=== PATIENT | male | born 1985 | race Caucasian/White ===

== ENCOUNTER 2021-05-07 16:27 | Emergency (ER) | payer OTHER, MEDICAID, SELFPAY ==
--- NOTE | 2021-05-07 17:15 | PC.NURSE ---
1714 no answer when called
== END 2021-05-07 17:15 | disposition left against medical advice (07) ==
DX: Z53.21 Procedure and treatment not carried out due to patient leaving prior to being seen by health care provider (principal)
CPT/HCPCS: 99199

== ENCOUNTER 2021-05-19 10:43 | Outpatient (CLI) | payer OTHER, MEDICAID, SELFPAY ==
--- NOTE | ~2021-05-19 | XR_ITS ---
XR chest 2V 05/19/2021 11:38 Indication: Dyspnea. Covid. Procedure: 2 view chest Comparison: 08/21/2015 Findings: Patchy bilateral airspace disease, compatible with pneumonia. No pleural effusion. Heart si ze normal. No pneumothorax. No acute osseous abnormality. Impression: 1: Patchy bilateral infiltrates, compatible with pneumonia. Reviewed, dictated and finalized at location A. Impression: 1: Patchy bilateral infiltrates, compatible with pneumonia.
== END 2021-05-19 10:44 | disposition home or self-care (01) ==
PROVIDERS: PCP Family Medicine; Visit Provider Nurse Practitioner Family
DX: R06.09 Other forms of dyspnea (principal); B94.8 Sequelae of other specified infectious and parasitic diseases
CPT/HCPCS: 71046

== ENCOUNTER 2021-06-04 14:45 | Outpatient (CLI) | payer OTHER, BC, SELFPAY ==
--- NOTE | ~2021-06-04 | XR_ITS ---
XR chest 2V DATE: 06/04/2021 15:03 INDICATION: Pneumonia TECHNIQUE: PA and lateral views COMPARISON: 05/19/2021 2 view chest FINDINGS: Normal heart size. No hilar or mediastinal enlargement. Interval clearing of mild patchy bilateral pulmonary infiltrates since 05/19/2021. No pleural effusion or pulmonary vascular congestion or pneumothorax. IMPRESSION: No active cardiopulmonary disease Reviewed, dictated and finalized at location A.
== END 2021-06-04 14:46 | disposition home or self-care (01) ==
LOC: ANHIMG 14:49
PROVIDERS: PCP Family Medicine; Visit Provider Nurse Practitioner Family
DX: J18.9 Pneumonia, unspecified organism (principal)
CPT/HCPCS: 71046

== ENCOUNTER 2021-06-26 16:36 | Outpatient (CLI) | payer OTHER, BC, SELFPAY ==
--- NOTE | ~2021-06-26 | XR_ITS ---
EXAMINATION: XR chest 2V 06/26/2021 17:00 INDICATION: Pneumonia PROCEDURE: 2 view chest COMPARISON: Comparison to multiple prior studies sequentially, with oldest reviewed study dated 09/23. FINDINGS: The lungs are clear. The cardiomediastinal silhouette is within normal limits. There are no pleural effusions. There is no pneumothorax suspected. IMPRESSION: 1: NO ACUTE CARDIOPULMONARY DISEASE. Reviewed, dictated and finalized at location A.
== END 2021-06-26 16:37 | disposition home or self-care (01) ==
LOC: ANHIMG 16:47
PROVIDERS: PCP Family Medicine; Visit Provider Nurse Practitioner Family
DX: J18.9 Pneumonia, unspecified organism (principal)
CPT/HCPCS: 71046

== ENCOUNTER 2021-12-11 17:49 | Outpatient (CLI) | payer OTHER, BC, SELFPAY ==
--- NOTE | ~2021-12-11 | XR_ITS ---
XR hand LT min 3V DATE: 12/11/2021 18:39 INDICATION: Injury. Pain mainly at the third through fifth metacarpal and carpal metacarpal areas TECHNIQUE: 3 views COMPARISON: None FINDINGS: No fracture or dislocation, periosteal reaction or bone destruction. No erosive change or c hondrocalcinosis. IMPRESSION: No significant abnormality Reviewed, dictated and finalized at location A. IMPRESSION: No significant abnormality
--- NOTE | ~2021-12-11 | XR_ITS ---
XR knee RT 3V DATE: 12/11/2021 18:39 INDICATION: Anterior knee pain; injury on 11/28/2021 TECHNIQUE: 3 views COMPARISON: None FINDINGS: No fracture or dislocation or joint effusion. No radiopaque intra-articular loose body or c hondrocalcinosis. Joint spaces are well preserved. No evidence of joint effusion. IMPRESSION: Negative Reviewed, dictated and finalized at location A. IMPRESSION: Negative
--- NOTE | ~2021-12-11 | XR_ITS ---
XR ankle RT 2V DATE: 12/11/2021 18:40 INDICATION: Injury on. Lateral ankle pain. TECHNIQUE: 2 views COMPARISON: None FINDINGS: No fracture or dislocation of the ankle or disruption of the ankle mortise. No periosteal r eaction or bone destruction. IMPRESSION: Negative Reviewed, dictated and finalized at location A. IMPRESSION: Negative
--- NOTE | ~2021-12-11 | XR_ITS ---
XR wrist LT w scaphoid DATE: 12/11/2021 18:39 INDICATION: Injury. Pain. TECHNIQUE: 4 views COMPARISON: None FINDINGS: No fracture, dislocation, periosteal reaction or bone destruction, erosive change, chondroc alcinosis or joint space narrowing. IMPRESSION: Negative Reviewed, dictated and finalized at location A. IMPRESSION: Negative
--- NOTE | ~2021-12-11 | XR_ITS ---
XR hand RT 2V DATE: 12/11/2021 18:38 INDICATION: Injury. Pain at the fourth and fifth metacarpals. TECHNIQUE: AP and lateral views COMPARISON: None FINDINGS: No fracture or dislocation, periosteal reaction or bone destruction. Joint spaces are prese rved. No erosive change or chondrocalcinosis. IMPRESSION: No significant abnormality Reviewed, dictated and finalized at location A. IMPRESSION: No significant abnormality
== END 2021-12-11 17:50 | disposition home or self-care (01) ==
PROVIDERS: PCP Family Medicine; Visit Provider Nurse Practitioner Family
DX: M25.571 Pain in right ankle and joints of right foot (principal); M25.561 Pain in right knee; M25.542 Pain in joints of left hand; M25.541 Pain in joints of right hand; M25.532 Pain in left wrist
CPT/HCPCS: 73110; 73120; 73130; 73562; 73600

== ENCOUNTER 2022-06-15 15:29 | Outpatient (CLI) | payer SELFPAY ==
--- NOTE | ~2022-06-15 | XR_ITS ---
EXAMINATION: XR chest 2V DATE: 06/15/2022 16:13 INDICATION: Cough, unspecified. TECHNIQUE: Frontal and lateral views of the chest were obtained. COMPARISON: Chest 2 views 06/26/2021, chest CT 06/18/2013 FINDINGS: The chest demonstrates clear lungs without pneumonia, pleural effusion, or pneumothorax. Th e heart size is normal. IMPRESSION: 1. No acute cardiopulmonary disease. Reviewed, dictated and finalized at location B.
== END 2022-06-15 15:30 | disposition home or self-care (01) ==
PROVIDERS: PCP Family Medicine; Visit Provider Nurse Practitioner Family
DX: R05.9 Cough, unspecified (principal)
CPT/HCPCS: 71046

== ENCOUNTER 2022-06-21 21:18 | Emergency (ER) | payer BC, SELFPAY ==
[2022-06-21 21:48] VITALS: BP 136/84; PULSE 107; RESP 18; TEMP 36.6; O2SAT 98
--- NOTE | 2022-06-21 22:49 | PC.NURSE ---
Pt states Im just going to go as ambulating out of ED. Steady gait, no obvious distress.
== END 2022-06-21 22:51 | disposition left against medical advice (07) ==
PROVIDERS: PCP Family Medicine
DX: S61.204A Unspecified open wound of right ring finger without damage to nail, initial encounter (principal)
CPT/HCPCS: 99199

== ENCOUNTER 2024-02-12 19:44 | Emergency (ER) | payer BC, SELFPAY ==
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
[2024-02-12 19:50] VITALS: BP 136/72; PULSE 95; RESP 20; TEMP 36.9; O2SAT 100
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
== END 2024-02-12 21:10 | disposition home or self-care (01) ==
PROVIDERS: Emergency Provider Registered Nurse
DX: S00.83XA Contusion of other part of head, initial encounter (principal); S00.33XA Contusion of nose, initial encounter; Y04.0XXA Assault by unarmed brawl or fight, initial encounter; Z87.891 Personal history of nicotine dependence; F12.90 Cannabis use, unspecified, uncomplicated
CPT/HCPCS: 70150; 70160; 99213; G0463

== ENCOUNTER 2025-03-13 19:05 | Emergency (ER) | payer BC, SELFPAY ==
--- NOTE | ~2025-03-13 | US_ITS ---
EXAMINATION: US soft tissue LE DATE: 03/13/2025 20:10 INDICATION: Achilles tendon injury versus hematoma with left calf pain TECHNIQUE: Multiple grayscale and Doppler ultrasound images of the posterior left calf and Achilles t endon were obtained. COMPARISON: None FINDINGS: The Achilles tendon appears normal. Near the site of maximal pain there is a 12 x 10 mm lenticular fl uid collection situated between the caudal margin of the medial head of the gastrocnemius and the apo neurosis between the soleus muscle gastrocnemius muscle suspicious for a very small partial tear/mode rate grade sprain. No other larger hematomas identified. The visualized musculature of the calf appea rs otherwise unremarkable. IMPRESSION: 1. Likely very small partial tear/moderate grade strain at the myotendinous junction between the caud al margin of the medial head of the gastrocnemius and the underlying aponeurosis. Achilles tendon ama ears normal. Reviewed, dictated and finalized at location A. IMPRESSION: 1. Likely very small partial tear/moderate grade strain at the myotendinous luigi ction between the caudal margin of the medial head of the gastrocnemius and the underlying aponeurosis. Achilles tendon appears normal.
[2025-03-13 19:07] VITALS: BP 127/85; PULSE 78; RESP 16; TEMP 36.7; O2SAT 99
--- OUTSIDE RECORDS SUMMARY | 2025-03-13 19:07 | XMS_ITS | Clinical Summary ---
Author Organization [facility] Address [address] [place] [address] Care Team Providers Care Electric Crane Operator Name Role Phone Jayant Mullins MD Primary Care Provider [phone] Alessandra Saavedra APRN-LEASE EXAMINER Unavailable [phone] Source Comments [facility],non-owned Affiliates and Associated Physician Practices is amultiple site organization consisting of ambulatory clinics and hospital sitesin [place], [place], [place] and [place]. This disclosure is being madepursuant to the Care Everywhere program and may not contain all information available regarding this patient. Last updated 18.[facility] Allergies No known active allergies Medications * Be aware that medications may not be up to date on this document. Alwaysverify current medications with the patient. acetaminophen (TYLENOL) 500 MG tablet Take 2 (two) tablets by mouth every 6 hours as needed for Fever or Pain Maximum allowable Acetaminophen amount = 4 Grams (4000 mg) / 24 hours. 60 tablet 2 Active ibuprofen (MOTRIN) 600 MG tablet Take 1 (one) tablet by mouth every 6 hours as needed for Pain 30 tablet 2 Active lidocaine (LIDODERM) 5 % patch Apply 1 (one) patch to skin once daily 6 patch 2 Active Immunizations Immunization Administration Dates Next Due TDAP (7yrs+) 11/28/2021 Social History Tobacco Use Types Packs/Day Years Used Date Smoking Tobacco: Never Smokeless Tobacco: Never Alcohol Use Standard Drinks/Week Comments Never 0 (1 standard drink = 0.6 oz pur e alcohol) AUDIT-C Answer Date Recorded Q1: How often do you have a drink containing alc ohol? Never 11/28/2021 Q2: How many drinks containi ng alcohol do you have on a typical day when you are drinking? Patient declined 11/28/2021 Q3: How often do you have si x or more drinks on one occasion? 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 Gender Identity Not on file Sexual Orientation Not on file Last Filed Vital Signs Vital Sign Reading Time Taken Comments Blood Pressure 128/81 11/28/2021 1:24 PM CDT Pulse 90 11/28/2021 1:24 PM CDT Temperature 36.2 C (97.1 F) 11/28/2021 1:24 PM CDT Respiratory Rate 16 11/28/2021 1:24 PM CDT Oxygen Saturation 100% 11/28/2021 1:24 PM CDT Inhaled Oxygen Concentration - - Weight 65.8 kg (145 lb) 11/28/2021 1:24 PM CDT Height 154.9 cm (5' 1) 11/28/2021 1:24 PM CDT Body Mass Index 27.4 11/28/2021 1:24 PM CDT Plan of Treatment Health Maintenance Due Date Last Done Comments HIV SCREENING 2002 HEPATITIS C SCREENING 02/01/2005 HEPATITIS B VACCINE (1 of 3 - 19+ 3-dose series) 2006 HPV VACCINE (1 - 3-dose SCDM series) 2014 COVID-19 VACCINE (3 - 2023-2 5 season) 2024 09/12/2021, 08/14/2021 DEPRESSION SCREENING 08/30/2024 INFLUENZA VACCINE (#1) 2025 7, 01/20/2006 DTAP/TDAP/TD VACCINES (2 - T d or Tdap) 11/29/2031 11/28/2021 ZOSTER VACCINE (1 of 2) 2037 HIB VACCINE Aged Out No longer eligi ble based on patient's age to complete this topic MENINGOCOCCAL (Group B) VACCINE SHARED DECISION-MAKING Aged Out No longer eligible based on patient's age to complete this topic MENINGOCOCCAL GROUPS A/C/Y/W VACCINE Aged Out No longer eligible b ased on patient's age to complete this topic PNEUMOCOCCAL VACCINE Aged Out No long er eligible based on patient's age to complete this topic Insurance TP THIRD CONSTITUTION PARTY LIABILITY Alliance Party Liability [facility] MEDICAID [place] [id number] Care Teams Electric Crane Operator Relationship Specialty Start Date End Date Jayant Mullins MD [address] [place] [address] PCP - General 02/21/13 Alessandra Saavedra, MASON TENDER-LEASE EXAMINER [address] [place] [address] PCP - Attributed-[employer] Medicaid [place] 05/30/21
--- OUTSIDE RECORDS SUMMARY | 2025-03-13 19:07 | XMS_ITS | Clinical Summary ---
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
--- OUTSIDE RECORDS SUMMARY | 2025-03-13 19:07 | XMS_ITS | Referral Summary ---
Author Organization [facility] Address [facility] [place] [address] Care Team Providers Care Doughnut Dough Mixer Name Role Phone No, Physician Primary Care Provider [phone] Ethan Mc MD Unavailable [phone] Allergies Active Allergy Reactions Criticality Noted Date Comments Vancomycin Itching,Rash Medium 08/10/2023 Medications oxyCODONE (ROXICODONE) 5 mg immediate release tabletIndication s:Pain Take 1 tablet (5 mg total) by mouth every 8 (eight) hours as needed for pain for up to 10 doses 10 tablet 08/11/2023 Active Active Problems Problem Noted Date Diagnosed Date Cellulitis of left wrist 08/09/2023 Immunizations Immunization Administration Dates Next Due Tdap 08/09/2023 Social History Tobacco Use Types Packs/Day Years Used Date Smoking Tobacco: Unknown Tobacco Cessation:Counseling Given: No Personal Safety Answer Date Recorded Have you ever been in or are you currently in a harmful physical or emotional relationship or is someone making you feel afraid or unsafe? Denies 08/08/2023 Sex and Gender Information Value Date Recorded Sex Assigned at Not on file Legal Sex Male 5:18 PM DISPATCHER CHIEF OIL Gender Identity Not on file Sexual Orientation Not on file Last Filed Vital Signs Vital Sign Reading Time Taken Comments Blood Pressure 116/98 08/11/2023 7:52 AM DISPATCHER CHIEF OIL Pulse 54 08/11/2023 7:52 AM DISPATCHER CHIEF OIL Temperature 36.4 C (97.5 F) 08/11/2023 7:52 AM DISPATCHER CHIEF OIL Respiratory Rate 20 08/11/2023 7:52 AM DISPATCHER CHIEF OIL Oxygen Saturation 93% 08/11/2023 7:52 AM DISPATCHER CHIEF OIL Inhaled Oxygen Concentration - - Weight 57.7 kg (127 lb 3.2 oz) 08/09/2023 5:22 P M DISPATCHER CHIEF OIL Height 154.9 cm (5' 1) 08/08/2023 10:00 PM DISPATCHER CHIEF OIL Body Mass Index 24.03 08/08/2023 10:00 PM DISPATCHER CHIEF OIL Plan of Treatment Not on file Insurance [facility] Member Subscriber Plan / Payer (Ef fective 2021-Present) Name:Ponce Dai Lizbet Relation to Subscriber:Self Name:Ponce Dai Payer ID:[id number] (NAIC) Type:MEDICAID RISK OTHER [address] [facility] Advance Directives For more information, please contact: [phone] * Full Code (Latest Code Status on File) Date Activated Date Inactivated Comments 08/09/2023 11:11 AM 08/11/2023 5:06 PM Care Teams Doughnut Dough Mixer Relationship Specialty Start Date End Date No, Physician PCP - General 08/08/23 Ethan Mc MD [address] [place] [address] [address] FUNK [address] [place] [id number] Surgeon General Surgery 08/11/23
--- OUTSIDE RECORDS SUMMARY | 2025-03-13 19:07 | XMS_ITS | Continuity of Care Document ---
Author Name [facility] Organization [facility] Care Team Providers Care Dyer Helper Name Role Phone [facility] Unavailable Unavailable Problems Combined list of problems from Department of Defense and Veterans Affairs facilities. It does not include entries that were removed or entered in error. 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 Exposure to potentially hazardous substance Active Condition [facility] Mood disorder of manic type Active Condition [facility] Personality disorder Active Condition [facility] Posttraumatic stress disorder Active Condition [facility] Suicidal thoughts Active Condition [facility] Allergies, Adverse Reactions, Alerts Combined list of allergies from Department of Defense and Veterans Affairs facilities. It does not include entries that were removed or entered in error. Substance Category Reaction Severity Reaction type Status Date Reported Comments Source No Known Allergies Drug allergy (disorder) active 08/26/2007 [facility] Immunizations Combined list of available immunizations from the Department of Defense and Veterans Affairs facilities. Immunization Series Date Given Administered By Site Reaction Lot Number CVX Code Drug Meter Reader Chief Status Comments Source anthrax vaccine 4 2007 [id number] [facility] [employer] [place] ([facility]) [facility] ed anthrax vaccine [facility] influenza virus vaccine, live, attenuated, for intranasal use 0 2006 [id number] [employer] (MED) complet ed influenza virus vaccine, live, attenuate d, for intranasa l use DoD anthrax vaccine 3 2006 [id number] [employer] [place] ([facility]) complet ed anthrax vaccine DoD anthrax vaccine 2 2006 [id number] [employer] [place] ([facility]) complet ed anthrax vaccine DoD anthrax vaccine 1 2006 [id number] 24 [employer] [place] ([facility]) complet ed anthrax vaccine DoD influenza virus vaccine, split virus (incl. purified surface antigen)-reti red CODE 0 2006 UNK 15 [employer] (ANNAMARIE) complet ed influenza virus vaccine, split virus (incl. purified surface antigen)- retired CODE DoD typhoid Vi capsular polysaccharid e vaccine 1 2006 UNK 101 [employer] (MACKENZIE) complet ed typhoid Vi capsular polysacch aride vaccine DoD hepatitis A and hepatitis B vaccine 3 2006 UNK 104 Unknown (UNK) comple t ed hepatitis A and hepatitis B vaccine DoD hepatitis A and hepatitis B vaccine 2 2005 UNK 104 Unknown (UNK) comple t ed hepatitis A and hepatitis B vaccine DoD poliovirus vaccine, inactivated 0 2005 UNK 10 Unknown (UNK) comple t ed polioviru s vaccine, inactivat ed DoD yellow fever vaccine 0 2005 UNK 37 Unknown (UNK) comple t ed yellow fever vaccine DoD hepatitis B vaccine, adult dosage 2 2005 UNK 43 Unknown (UNK) comple t ed hepatitis B vaccine, adult dosage DoD hepatitis A vaccine, adult dosage 2 2005 UNK 52 Unknown (UNK) comple t ed hepatitis A vaccine, adult dosage DoD measles, mumps and rubella virus vaccine 0 2005 UNK 03 Merck (MSD) complet ed measles, mumps and rubella virus vaccine DoD tetanus and diphtheria toxoids, adsorbed, preservative free, for adult use (2 Lf of tetanus toxoid and 2 Lf of diphtheria toxoid) 0 2005 UNK 09 Unknown (UNK) comple t ed tetanus and diphtheri a toxoids, adsorbed, preservat alia free, for adult use (2 Lf of tetanus toxoid and 2 Lf of diphtheri a toxoid) DoD influenza virus vaccine, split virus (incl. purified surface antigen)-reti red CODE 0 2005 UNK 15 Unknown (UNK) comple t ed influenza virus vaccine, split virus (incl. purified surface antigen)- retired CODE DoD meningococcal polysaccharid e vaccine (MPSV4) 0 2005 UNK 32 Unknown (UNK) comple t ed meningoco ccal polysacch aride vaccine (MPSV4) DoD pneumococcal polysaccharid e vaccine, 23 valent 0 2005 UNK 33 Merck (MSD) complet ed pneumococ lena polysacch aride vaccine, 23 valent DoD hepatitis B vaccine, adult dosage 1 2005 UNK 43 Unknown (UNK) comple t ed hepatitis B vaccine, adult dosage DoD hepatitis A vaccine, adult dosage 1 2005 UNK 52 Unknown (UNK) comple t ed hepatitis A vaccine, adult dosage DoD hepatitis A and hepatitis B vaccine 1 2005 UNK 104 Unknown (UNK) comple t ed hepatitis A and hepatitis B vaccine DoD hepatitis B vaccine, adult dosage 2 2005 UNK 43 Unknown (UNK) comple t ed hepatitis B vaccine, adult dosage DoD Results Combined list of recent chemistry, hematology and other laboratory results from Department of Defense and Veterans Affairs, ranging from 15 months to all on record, depending upon the facility. Order Name Results Value Reference Range Date Interpretation Specimen Comments Source METHADON E PANEL (STL) ETHANOL [MASS/VOLU ME] IN URINE Negative mg/dL 0 - 20 04/07 Specimen Type: URINE Comment: The cut-off value for this test was laboratory developed and its performance characteris tics confirmed by the [facility] laboratory thru method comparison with reference laboratory and medication chart review. The laboratory is regulated under CLIA as qualified to perform high-comple xity testing. This test is used for clinical purposes in conjunction with other laboratory tests. Ordering Provider: TAMIE JUDGE Report Released Date/Time: Apr 07, 2023 03:26 PM Reporting Lab: [facility] [address] [facility] [address] Performing Lab: [facility] [address] [facility] [address] [facility] METHADON E PANEL (STL) AMPHETAMIN E [PRESENCE] IN URINE BY SCREEN METHOD Negative ng/mL 04/07 Specimen Type: URINE Comment: The cut-off value for this test was laboratory developed and its performance characteris tics confirmed by the [facility] laboratory thru method comparison with reference laboratory and medication chart review. The laboratory is regulated under CLIA as qualified to perform high-comple xity testing. This test is used for clinical purposes in conjunction with other laboratory tests. Ordering Provider: TAMIE JUDGE Report Released Date/Time: Apr 07, 2023 03:26 PM Reporting Lab: [place] [address] [place] [phone] Performing Lab: [place] [phone] [facility] METHADON E PANEL (STL) BENZOYLECG ONINE [PRESENCE] IN URINE Negative ng/mL 04/07 Specimen Type: URINE Comment: The cut-off value for this test was laboratory developed and its performance characteris tics confirmed by the [facility] laboratory thru method comparison with reference laboratory and medication chart review. The laboratory is regulated under CLIA as qualified to perform high-comple xity testing. This test is used for clinical purposes in conjunction with other laboratory tests. Ordering Provider: TAMIE JUDGE Report Released Date/Time: Apr 07, 2023 03:26 PM Reporting Lab: [place] [phone] Performing Lab: [address] [address] [facility] METHADON E PANEL (STL) BENZODIAZE PINES [PRESENCE] IN URINE BY SCREEN METHOD Negative ng/mL 04/07 Specimen Type: URINE Comment: The cut-off value for this test was laboratory developed and its performance characteris tics confirmed by the [facility] laboratory thru method comparison with reference laboratory and medication chart review. The laboratory is regulated under CLIA as qualified to perform high-comple xity testing. This test is used for clinical purposes in conjunction with other laboratory tests. Ordering Provider: TAMIE JUDGE Report Released Date/Time: Apr 07, 2023 03:26 PM Reporting Lab: [facility] [address] [facility] [phone] Performing Lab: [facility] [address] [facility] [address] [facility] METHADON E PANEL (STL) CANNABINOI DS [PRESENCE] IN URINE BY SCREEN METHOD Negative ng/mL 04/07 Specimen Type: URINE Comment: The cut-off value for this test was laboratory developed and its performance characteris tics confirmed by the [facility] laboratory thru method comparison with reference laboratory and medication chart review. The laboratory is regulated under CLIA as qualified to perform high-comple xity testing. This test is used for clinical purposes in conjunction with other laboratory tests. Ordering Provider: TAMIE JUDGE Report Released Date/Time: Apr 07, 2023 03:26 PM Reporting Lab: [place] [address] [facility] [phone] Performing Lab: [place] [address] [facility] [address] [facility] METHADON E PANEL (STL) METHADONE [PRESENCE] IN URINE Negative ng/mL 04/07 Specimen Type: URINE Comment: The cut-off value for this test was laboratory developed and its performance characteris tics confirmed by the [facility] laboratory thru method comparison with reference laboratory and medication chart review. The laboratory is regulated under CLIA as qualified to perform high-comple xity testing. This test is used for clinical purposes in conjunction with other laboratory tests. Ordering Provider: TAMIE JUDGE Report Released Date/Time: Apr 07, 2023 03:26 PM Reporting Lab: [place] [id number] [facility] [phone] Performing Lab: [facility] [address] [facility] [address] [facility] METHADON E PANEL (STL) OPIATES [PRESENCE] IN URINE BY SCREEN METHOD Negative ng/mL 04/07 Specimen Type: URINE Comment: The cut-off value for this test was laboratory developed and its performance characteris tics confirmed by the [facility] laboratory thru method comparison with reference laboratory and medication chart review. The laboratory is regulated under CLIA as qualified to perform high-comple xity testing. This test is used for clinical purposes in conjunction with other laboratory tests. Ordering Provider: TAMIE JUDGE Report Released Date/Time: Apr 07, 2023 03:26 PM Reporting Lab: [facility] [address] [facility] [address] Performing Lab: [facility] [address] [facility] [address] [facility] METHADON E PANEL (STL) CREATININE [MASS/VOLU ME] IN URINE 67.0 mg/dL 63 - 166 04/07 Specimen Type: URINE Comment: The cut-off value for this test was laboratory developed and its performance characteris tics confirmed by the [facility] laboratory thru method comparison with reference laboratory and medication chart review. The laboratory is regulated under CLIA as qualified to perform high-comple xity testing. This test is used for clinical purposes in conjunction with other laboratory tests. Ordering Provider: TAMIE JUDGE Report Released Date/Time: Apr 07, 2023 03:26 PM Reporting Lab: [facility] [address] [facility] [phone] Performing Lab: [place] [address] [facility] [address] [facility] METHADON E PANEL (STL) OXYCODONE CUTOFF [MASS/VOLU ME] IN URINE FOR SCREEN METHOD Negative ng/mL 04/07 Specimen Type: URINE Comment: The cut-off value for this test was laboratory developed and its performance characteris tics confirmed by the [facility] laboratory thru method comparison with reference laboratory and medication chart review. The laboratory is regulated under CLIA as qualified to perform high-comple xity testing. This test is used for clinical purposes in conjunction with other laboratory tests. Ordering Provider: TAMIE JUDGE Report Released Date/Time: Apr 07, 2023 03:26 PM Reporting Lab: [facility] [address] [facility] [phone] Performing Lab: [address] [address] [facility] METHADON E PANEL (STL) BUPRENORPH INE [PRESENCE] IN URINE Negative 04/07 Specimen Type: URINE Comment: The cut-off value for this test was laboratory developed and its performance characteris tics confirmed by the [facility] laboratory thru method comparison with reference laboratory and medication chart review. The laboratory is regulated under CLIA as qualified to perform high-comple xity testing. This test is used for clinical purposes in conjunction with other laboratory tests. Ordering Provider: TAMIE JUDGE Report Released Date/Time: Apr 07, 2023 03:26 PM Reporting Lab: [address] [address] Performing Lab: [address] [address] [facility] METHADON E PANEL (STL) FENTANYL [PRESENCE] IN URINE Negative ng/mL 04/07 Specimen Type: URINE Comment: The cut-off value for this test was laboratory developed and its performance characteris tics confirmed by the [facility] laboratory thru method comparison with reference laboratory and medication chart review. The laboratory is regulated under CLIA as qualified to perform high-comple xity testing. This test is used for clinical purposes in conjunction with other laboratory tests. Ordering Provider: TAMIE JUDGE Report Released Date/Time: Apr 07, 2023 03:26 PM Reporting Lab: [place] [address] [facility] [address] Performing Lab: [address] [address] [facility] METHADON E PANEL (STL) ETHANOL [MASS/VOLU ME] IN URINE Negative mg/dL 0 - 20 03/31 Specimen Type: URINE Comment: The cut-off value for this test was laboratory developed and its performance characteris tics confirmed by the [facility] laboratory thru method comparison with reference laboratory and medication chart review. The laboratory is regulated under CLIA as qualified to perform high-comple xity testing. This test is used for clinical purposes in conjunction with other laboratory tests. Ordering Provider: TAMIE JUDGE Report Released Date/Time: Mar 31, 2023 09:12 AM Reporting Lab: [facility] [address] [facility] [address] Performing Lab: [facility] [address] [facility] [address] [facility] METHADON E PANEL (STL) AMPHETAMIN E [PRESENCE] IN URINE BY SCREEN METHOD Negative ng/mL 03/31 Specimen Type: URINE Comment: The cut-off value for this test was laboratory developed and its performance characteris tics confirmed by the [facility] laboratory thru method comparison with reference laboratory and medication chart review. The laboratory is regulated under CLIA as qualified to perform high-comple xity testing. This test is used for clinical purposes in conjunction with other laboratory tests. Ordering Provider: TAMIE JUDGE Report Released Date/Time: Mar 31, 2023 09:12 AM Reporting Lab: [address] [address] Performing Lab: [address] [address] [facility] METHADON E PANEL (STL) BENZOYLECG ONINE [PRESENCE] IN URINE Negative ng/mL 03/31 Specimen Type: URINE Comment: The cut-off value for this test was laboratory developed and its performance characteris tics confirmed by the [facility] laboratory thru method comparison with reference laboratory and medication chart review. The laboratory is regulated under CLIA as qualified to perform high-comple xity testing. This test is used for clinical purposes in conjunction with other laboratory tests. Ordering Provider: TAMIE JUDGE Report Released Date/Time: Mar 31, 2023 09:12 AM Reporting Lab: [place] [address] [facility] [address] Performing Lab: [address] [place] [address] [facility] METHADON E PANEL (STL) BENZODIAZE PINES [PRESENCE] IN URINE BY SCREEN METHOD Negative ng/mL 03/31 Specimen Type: URINE Comment: The cut-off value for this test was laboratory developed and its performance characteris tics confirmed by the [facility] laboratory thru method comparison with reference laboratory and medication chart review. The laboratory is regulated under CLIA as qualified to perform high-comple xity testing. This test is used for clinical purposes in conjunction with other laboratory tests. Ordering Provider: TAMIE JUDGE Report Released Date/Time: Mar 31, 2023 09:12 AM Reporting Lab: [place] [phone] Performing Lab: [address] [phone] [place] [address] METHADON E PANEL (STL) CANNABINOI DS [PRESENCE] IN URINE BY SCREEN METHOD 79-POSng /mL 03/31 Specimen Type: URINE Comment: The cut-off value for this test was laboratory developed and its performance characteris tics confirmed by the [facility] laboratory thru method comparison with reference laboratory and medication chart review. The laboratory is regulated under CLIA as qualified to perform high-comple xity testing. This test is used for clinical purposes in conjunction with other laboratory tests. Ordering Provider: TAMIE JUDGE Report Released Date/Time: Mar 31, 2023 09:12 AM Reporting Lab: [address] [address] Performing Lab: [address] [phone] [place] [address] METHADON E PANEL (STL) METHADONE [PRESENCE] IN URINE Negative ng/mL 03/31 Specimen Type: URINE Comment: The cut-off value for this test was laboratory developed and its performance characteris tics confirmed by the [facility] laboratory thru method comparison with reference laboratory and medication chart review. The laboratory is regulated under CLIA as qualified to perform high-comple xity testing. This test is used for clinical purposes in conjunction with other laboratory tests. Ordering Provider: TAMIE JUDGE Report Released Date/Time: Mar 31, 2023 09:12 AM Reporting Lab: [facility] [address] [facility] [address] Performing Lab: [facility] [address] [facility] [address] [facility] METHADON E PANEL (STL) OPIATES [PRESENCE] IN URINE BY SCREEN METHOD Negative ng/mL 03/31 Specimen Type: URINE Comment: The cut-off value for this test was laboratory developed and its performance characteris tics confirmed by the [facility] laboratory thru method comparison with reference laboratory and medication chart review. The laboratory is regulated under CLIA as qualified to perform high-comple xity testing. This test is used for clinical purposes in conjunction with other laboratory tests. Ordering Provider: TAMIE JUDGE Report Released Date/Time: Mar 31, 2023 09:12 AM Reporting Lab: [place] [id number] [facility] [address] Performing Lab: [address] [address] [facility] METHADON E PANEL (STL) CREATININE [MASS/VOLU ME] IN URINE 106.2 mg/dL 63 - 166 03/31 Specimen Type: URINE Comment: The cut-off value for this test was laboratory developed and its performance characteris tics confirmed by the [facility] laboratory thru method comparison with reference laboratory and medication chart review. The laboratory is regulated under CLIA as qualified to perform high-comple xity testing. This test is used for clinical purposes in conjunction with other laboratory tests. Ordering Provider: TAMIE JUDGE Report Released Date/Time: Mar 31, 2023 09:12 AM Reporting Lab: [address] [address] Performing Lab: [address] [address] [facility] METHADON E PANEL (STL) OXYCODONE CUTOFF [MASS/VOLU ME] IN URINE FOR SCREEN METHOD Negative ng/mL 03/31 Specimen Type: URINE Comment: The cut-off value for this test was laboratory developed and its performance characteris tics confirmed by the [facility] laboratory thru method comparison with reference laboratory and medication chart review. The laboratory is regulated under CLIA as qualified to perform high-comple xity testing. This test is used for clinical purposes in conjunction with other laboratory tests. Ordering Provider: TAMIE JUDGE Report Released Date/Time: Mar 31, 2023 09:12 AM Reporting Lab: [place] [address] [facility] [address] Performing Lab: [address] [address] [facility] METHADON E PANEL (STL) BUPRENORPH INE [PRESENCE] IN URINE Negative 03/31 Specimen Type: URINE Comment: The cut-off value for this test was laboratory developed and its performance characteris tics confirmed by the [facility] laboratory thru method comparison with reference laboratory and medication chart review. The laboratory is regulated under CLIA as qualified to perform high-comple xity testing. This test is used for clinical purposes in conjunction with other laboratory tests. Ordering Provider: TAMIE JUDGE Report Released Date/Time: Mar 31, 2023 09:12 AM Reporting Lab: [place] [address] [facility] [address] Performing Lab: [place] [address] [facility] [address] [facility] METHADON E PANEL (STL) FENTANYL [PRESENCE] IN URINE Negative ng/mL 03/31 Specimen Type: URINE Comment: The cut-off value for this test was laboratory developed and its performance characteris tics confirmed by the [facility] laboratory thru method comparison with reference laboratory and medication chart review. The laboratory is regulated under CLIA as qualified to perform high-comple xity testing. This test is used for clinical purposes in conjunction with other laboratory tests. Ordering Provider: TAMIE JUDGE Report Released Date/Time: Mar 31, 2023 09:12 AM Reporting Lab: [address] [address] Performing Lab: [address] [address] [facility] METHADON E PANEL (STL) ETHANOL [MASS/VOLU ME] IN URINE Negative mg/dL 0 - 20 03/24 Specimen Type: URINE Comment: The cut-off value for this test was laboratory developed and its performance characteris tics confirmed by the [facility] laboratory thru method comparison with reference laboratory and medication chart review. The laboratory is regulated under CLIA as qualified to perform high-comple xity testing. This test is used for clinical purposes in conjunction with other laboratory tests. Ordering Provider: TAMIE JUDGE Report Released Date/Time: Mar 24, 2023 09:36 AM Reporting Lab: [address] [address] Performing Lab: [address] [address] [facility] METHADON E PANEL (STL) AMPHETAMIN E [PRESENCE] IN URINE BY SCREEN METHOD Negative ng/mL 03/24 Specimen Type: URINE Comment: The cut-off value for this test was laboratory developed and its performance characteris tics confirmed by the [facility] laboratory thru method comparison with reference laboratory and medication chart review. The laboratory is regulated under CLIA as qualified to perform high-comple xity testing. This test is used for clinical purposes in conjunction with other laboratory tests. Ordering Provider: TAMIE JUDGE Report Released Date/Time: Mar 24, 2023 09:36 AM Reporting Lab: [address] [address] Performing Lab: [address] [address] [facility] METHADON E PANEL (STL) BENZOYLECG ONINE [PRESENCE] IN URINE Negative ng/mL 03/24 Specimen Type: URINE Comment: The cut-off value for this test was laboratory developed and its performance characteris tics confirmed by the [facility] laboratory thru method comparison with reference laboratory and medication chart review. The laboratory is regulated under CLIA as qualified to perform high-comple xity testing. This test is used for clinical purposes in conjunction with other laboratory tests. Ordering Provider: TAMIE JUDGE Report Released Date/Time: Mar 24, 2023 09:36 AM Reporting Lab: [facility] [address] [facility] [address] Performing Lab: [facility] [address] [facility] [address] [facility] METHADON E PANEL (STL) BENZODIAZE PINES [PRESENCE] IN URINE BY SCREEN METHOD Negative ng/mL 03/24 Specimen Type: URINE Comment: The cut-off value for this test was laboratory developed and its performance characteris tics confirmed by the [facility] laboratory thru method comparison with reference laboratory and medication chart review. The laboratory is regulated under CLIA as qualified to perform high-comple xity testing. This test is used for clinical purposes in conjunction with other laboratory tests. Ordering Provider: TAMIE JUDGE Report Released Date/Time: Mar 24, 2023 09:36 AM Reporting Lab: [facility] [address] [facility] [address] Performing Lab: [place] [address] [facility] [address] [facility] METHADON E PANEL (STL) CANNABINOI DS [PRESENCE] IN URINE BY SCREEN METHOD 87-POSng /mL 03/24 Specimen Type: URINE Comment: The cut-off value for this test was laboratory developed and its performance characteris tics confirmed by the [facility] laboratory thru method comparison with reference laboratory and medication chart review. The laboratory is regulated under CLIA as qualified to perform high-comple xity testing. This test is used for clinical purposes in conjunction with other laboratory tests. Ordering Provider: TAMIE JUDGE Report Released Date/Time: Mar 24, 2023 09:36 AM Reporting Lab: [facility] [address] [facility] [address] Performing Lab: [address] [address] [facility] METHADON E PANEL (STL) METHADONE [PRESENCE] IN URINE Negative ng/mL 03/24 Specimen Type: URINE Comment: The cut-off value for this test was laboratory developed and its performance characteris tics confirmed by the [facility] laboratory thru method comparison with reference laboratory and medication chart review. The laboratory is regulated under CLIA as qualified to perform high-comple xity testing. This test is used for clinical purposes in conjunction with other laboratory tests. Ordering Provider: TAMIE JUDGE Report Released Date/Time: Mar 24, 2023 09:36 AM Reporting Lab: [address] [address] Performing Lab: [place] [address] [facility] [address] [facility] METHADON E PANEL (STL) OPIATES [PRESENCE] IN URINE BY SCREEN METHOD Negative ng/mL 03/24 Specimen Type: URINE Comment: The cut-off value for this test was laboratory developed and its performance characteris tics confirmed by the [facility] laboratory thru method comparison with reference laboratory and medication chart review. The laboratory is regulated under CLIA as qualified to perform high-comple xity testing. This test is used for clinical purposes in conjunction with other laboratory tests. Ordering Provider: TAMIE JUDGE Report Released Date/Time: Mar 24, 2023 09:36 AM Reporting Lab: [place] [address] [facility] [address] Performing Lab: [address] [address] [facility] METHADON E PANEL (STL) CREATININE [MASS/VOLU ME] IN URINE 140.8 mg/dL 63 - 166 03/24 Specimen Type: URINE Comment: The cut-off value for this test was laboratory developed and its performance characteris tics confirmed by the [facility] laboratory thru method comparison with reference laboratory and medication chart review. The laboratory is regulated under CLIA as qualified to perform high-comple xity testing. This test is used for clinical purposes in conjunction with other laboratory tests. Ordering Provider: TAMIE JUDGE Report Released Date/Time: Mar 24, 2023 09:36 AM Reporting Lab: [facility] [address] [facility] [address] Performing Lab: [facility] [address] [facility] [address] [facility] METHADON E PANEL (STL) OXYCODONE CUTOFF [MASS/VOLU ME] IN URINE FOR SCREEN METHOD Negative ng/mL 03/24 Specimen Type: URINE Comment: The cut-off value for this test was laboratory developed and its performance characteris tics confirmed by the [facility] laboratory thru method comparison with reference laboratory and medication chart review. The laboratory is regulated under CLIA as qualified to perform high-comple xity testing. This test is used for clinical purposes in conjunction with other laboratory tests. Ordering Provider: TAMIE JUDGE Report Released Date/Time: Mar 24, 2023 09:36 AM Reporting Lab: [address] [address] Performing Lab: [address] [address] [facility] METHADON E PANEL (STL) BUPRENORPH INE [PRESENCE] IN URINE Negative 03/24 Specimen Type: URINE Comment: The cut-off value for this test was laboratory developed and its performance characteris tics confirmed by the [facility] laboratory thru method comparison with reference laboratory and medication chart review. The laboratory is regulated under CLIA as qualified to perform high-comple xity testing. This test is used for clinical purposes in conjunction with other laboratory tests. Ordering Provider: TAMIE JUDGE Report Released Date/Time: Mar 24, 2023 09:36 AM Reporting Lab: [place] [address] [facility] [address] Performing Lab: [address] [place] [address] [facility] METHADON E PANEL (STL) FENTANYL [PRESENCE] IN URINE Negative ng/mL 03/24 Specimen Type: URINE Comment: The cut-off value for this test was laboratory developed and its performance characteris tics confirmed by the [facility] laboratory thru method comparison with reference laboratory and medication chart review. The laboratory is regulated under CLIA as qualified to perform high-comple xity testing. This test is used for clinical purposes in conjunction with other laboratory tests. Ordering Provider: TAMIE JUDGE Report Released Date/Time: Mar 24, 2023 09:36 AM Reporting Lab: [address] [address] Performing Lab: [address] [phone] [place] [address] HEP C Ab HCV Ab (STL) HEPATITIS C VIRUS AB [PRESENCE] IN SERUM Nonreact alia 03/23 Specimen Type: SERUM No comment entered. Ordering Provider: TAMIE JUDGE Report Released Date/Time: Mar 22, 2023 09:52 AM Reporting Lab: [address] [address] Performing Lab: [address] [address] [facility] METHADON E PANEL (STL) ETHANOL [MASS/VOLU ME] IN URINE Negative mg/dL 0 - 20 03/22 Specimen Type: URINE Comment: The cut-off value for this test was laboratory developed and its performance characteris tics confirmed by the [facility] laboratory thru method comparison with reference laboratory and medication chart review. The laboratory is regulated under CLIA as qualified to perform high-comple xity testing. This test is used for clinical purposes in conjunction with other laboratory tests. Ordering Provider: TAMIE JUDGE Report Released Date/Time: Mar 22, 2023 10:49 AM Reporting Lab: [address] [address] Performing Lab: [place] [address] [facility] [address] [facility] METHADON E PANEL (STL) AMPHETAMIN E [PRESENCE] IN URINE BY SCREEN METHOD Negative ng/mL 03/22 Specimen Type: URINE Comment: The cut-off value for this test was laboratory developed and its performance characteris tics confirmed by the [facility] laboratory thru method comparison with reference laboratory and medication chart review. The laboratory is regulated under CLIA as qualified to perform high-comple xity testing. This test is used for clinical purposes in conjunction with other laboratory tests. Ordering Provider: TAMIE JUDGE Report Released Date/Time: Mar 22, 2023 10:49 AM Reporting Lab: [address] [address] Performing Lab: [address] [address] [facility] METHADON E PANEL (STL) BENZOYLECG ONINE [PRESENCE] IN URINE Negative ng/mL 03/22 Specimen Type: URINE Comment: The cut-off value for this test was laboratory developed and its performance characteris tics confirmed by the [facility] laboratory thru method comparison with reference laboratory and medication chart review. The laboratory is regulated under CLIA as qualified to perform high-comple xity testing. This test is used for clinical purposes in conjunction with other laboratory tests. Ordering Provider: TAMIE JUDGE Report Released Date/Time: Mar 22, 2023 10:49 AM Reporting Lab: [address] [address] Performing Lab: [place] [address] [facility] [address] [facility] METHADON E PANEL (STL) [place] [PRESENCE] IN URINE BY SCREEN METHOD Negative ng/mL 03/22 Specimen Type: URINE Comment: The cut-off value for this test was laboratory developed and its performance characteris tics confirmed by the [facility] laboratory thru method comparison with reference laboratory and medication chart review. The laboratory is regulated under CLIA as qualified to perform high-comple xity testing. This test is used for clinical purposes in conjunction with other laboratory tests. Ordering Provider: TAMIE JUDGE Report Released Date/Time: Mar 22, 2023 10:49 AM Reporting Lab: [facility] [address] [facility] [address] Performing Lab: [facility] [address] [facility] [address] [facility] METHADON E PANEL (STL) CANNABINOI DS [PRESENCE] IN URINE BY SCREEN METHOD 97-POSng /mL 03/22 Specimen Type: URINE Comment: The cut-off value for this test was laboratory developed and its performance characteris tics confirmed by the [facility] laboratory thru method comparison with reference laboratory and medication chart review. The laboratory is regulated under CLIA as qualified to perform high-comple xity testing. This test is used for clinical purposes in conjunction with other laboratory tests. Ordering Provider: TAMIE JUDGE Report Released Date/Time: Mar 22, 2023 10:49 AM Reporting Lab: [facility] [address] [facility] [address] Performing Lab: [address] [address] [facility] METHADON E PANEL (STL) METHADONE [PRESENCE] IN URINE Negative ng/mL 03/22 Specimen Type: URINE Comment: The cut-off value for this test was laboratory developed and its performance characteris tics confirmed by the [facility] laboratory thru method comparison with reference laboratory and medication chart review. The laboratory is regulated under CLIA as qualified to perform high-comple xity testing. This test is used for clinical purposes in conjunction with other laboratory tests. Ordering Provider: TAMIE JUDGE Report Released Date/Time: Mar 22, 2023 10:49 AM Reporting Lab: [facility] [address] [facility] [address] Performing Lab: [facility] [address] [facility] [address] [facility] METHADON E PANEL (STL) OPIATES [PRESENCE] IN URINE BY SCREEN METHOD Negative ng/mL 03/22 Specimen Type: URINE Comment: The cut-off value for this test was laboratory developed and its performance characteris tics confirmed by the [facility] laboratory thru method comparison with reference laboratory and medication chart review. The laboratory is regulated under CLIA as qualified to perform high-comple xity testing. This test is used for clinical purposes in conjunction with other laboratory tests. Ordering Provider: TAMIE JUDGE Report Released Date/Time: Mar 22, 2023 10:49 AM Reporting Lab: [address] [address] Performing Lab: [address] [address] [facility] METHADON E PANEL (STL) CREATININE [MASS/VOLU ME] IN URINE 88.6 mg/dL 63 - 166 03/22 Specimen Type: URINE Comment: The cut-off value for this test was laboratory developed and its performance characteris tics confirmed by the [facility] laboratory thru method comparison with reference laboratory and medication chart review. The laboratory is regulated under CLIA as qualified to perform high-comple xity testing. This test is used for clinical purposes in conjunction with other laboratory tests. Ordering Provider: TAMIE JUDGE Report Released Date/Time: Mar 22, 2023 10:49 AM Reporting Lab: [address] [address] Performing Lab: [address] [address] [facility] METHADON E PANEL (STL) OXYCODONE CUTOFF [MASS/VOLU ME] IN URINE FOR SCREEN METHOD Negative ng/mL 03/22 Specimen Type: URINE Comment: The cut-off value for this test was laboratory developed and its performance characteris tics confirmed by the [facility] laboratory thru method comparison with reference laboratory and medication chart review. The laboratory is regulated under CLIA as qualified to perform high-comple xity testing. This test is used for clinical purposes in conjunction with other laboratory tests. Ordering Provider: TAMIE JUDGE Report Released Date/Time: Mar 22, 2023 10:49 AM Reporting Lab: [address] [address] Performing Lab: [address] [address] [facility] METHADON E PANEL (STL) BUPRENORPH INE [PRESENCE] IN URINE Negative 03/22 Specimen Type: URINE Comment: The cut-off value for this test was laboratory developed and its performance characteris tics confirmed by the [facility] laboratory thru method comparison with reference laboratory and medication chart review. The laboratory is regulated under CLIA as qualified to perform high-comple xity testing. This test is used for clinical purposes in conjunction with other laboratory tests. Ordering Provider: TAMIE JUDGE Report Released Date/Time: Mar 22, 2023 10:49 AM Reporting Lab: [address] [address] Performing Lab: [address] [address] [facility] METHADON E PANEL (STL) FENTANYL [PRESENCE] IN URINE Negative ng/mL 03/22 Specimen Type: URINE Comment: The cut-off value for this test was laboratory developed and its performance characteris tics confirmed by the [facility] laboratory thru method comparison with reference laboratory and medication chart review. The laboratory is regulated under CLIA as qualified to perform high-comple xity testing. This test is used for clinical purposes in conjunction with other laboratory tests. Ordering Provider: TAMIE JUDGE Report Released Date/Time: Mar 22, 2023 10:49 AM Reporting Lab: [address] [address] Performing Lab: [address] [address] [facility] COVID-19 SCREENIN G PANEL (STL-PB) SARS-COV-2 (COVID-19) RNA [PRESENCE] IN RESPIRATOR Y SPECIMEN BY CLAUDY WITH PROBE DETECTION Not Detected 03/21 Specimen Type: NASOPHARYNX Comment: Qualitative real-time PCR and RT-PCR to detect viral RNA. A negative result does not preclude infection with the agent(s) tested and should not be used as the sole basis for treatment or other patient management decisions. If negative, but symptoms persist, consider re-testing. Positive results do not rule out bacterial infection or co-infectio n with other viruses. All results must be combined with clinical observation s, patient history, and epidemiolog ical information for final interpretat ion. Ordering Provider: JENNIFER MORTON Report Released Date/Time: Mar 18, 2023 03:01 PM Reporting Lab: [facility] [address] [facility] [address] Performing Lab: [facility] [address] [facility] [address] [facility] Encounters Combined list of: 1) Encounters from Department of [facility] Affairs facilities going backup to the last 18 months, not all MD inpatient encounters are included; 2) Encounters from the Department of [facility] facilities going backup to 280 months. Location Location Details Encounter Type Encounter Number Reason For Visit Attending Provider ADM Date DC Date Status Disposition Source [facility] [place]([facility]) OUTPATIENT [id number] R/O FX LEFT TIB/FIB RAMIRO ESCOBAR 02/26 Immediate Referral [place], [place]([facility]) [facility](Po diatry Clinic [facility]) OUTPATIENT [id number] under pronati on of both ankles. RAJIV MEYER 05/10 Released w/o Limitations [facility]( Podiatr y Clinic [facility] ) [facility](Br ig [facility]) OUTPATIENT [id number] New Lock Up LEENA KOHLI 04/07 Released w/o Limitations [facility]( Brig Clinic) [facility] OUTPATIENT [id number] SARTHAK ETIENNE 06/13 Released w/o Limitations [facility]( [facility] [place]) [facility] Outpatient Encounter [id number] 09/25 [facility] Procedures Combined list of: 1) Procedures from [facility] of [facility] facilities going back up to thelast 18 months, not all VA non-surgical procedures are included; 2) All procedures from the Department of Defense facilities. Procedure Procedure Type Code Date Perfomer Comments Sour e PURE TONE AUDIOMETRY (THRESHOLD); AIR ONLY 06/13/20 08 [facility] INDIVIDUAL PSYCHOTHERAPY, INSIGHT ORIENTED, BEHAVIOR MODIFYING AND/OR SUPPORTIVE, IN AN OFFICE OR OUTPATIENT FACILITY, APPROXIMATELY 20 TO 30 MINUTES [facility] WITH THE PATIENT 04/06/20 [facility] PSYCHIATRIC DIAGNOSTIC INTERVIEW EXAMINATION 04/05/20 [facility] PSYCHIATRIC DIAGNOSTIC INTERVIEW EXAMINATION 08/25/20 07 [facility] SELF-CARE/HOME MANAGMENT TRAIN (EG,ACT OF DAILY LIVING (ADL) &COMPENSAT TRAIN,MEAL PREPARATION,SAFETY PROCS,AND INSTRUCT IN USE OF ASST TECHNOLOGY DEV/ADPT EQUIP) DIR ONE-ON-ONE CONT,EA 15 MINUTES 05/10/20 07 [facility] NONINVASIVE EAR OR PULSE OXIMETRY FOR OXYGEN SATURATION; SINGLE DETERMINATION 06/14/20 [facility] PATIENT EDUCATION, NOT OTHERWISE CLASSIFIED, NON-PHYSICIAN PROVIDER, INDIVIDUAL, PER SESSION 06/14/20 [facility] PATIENT EDUCATION, NOT OTHERWISE CLASSIFIED, NON-PHYSICIAN PROVIDER, INDIVIDUAL, PER SESSION 06/04/20 [facility] NONINVASIVE EAR OR PULSE OXIMETRY FOR OXYGEN SATURATION; SINGLE DETERMINATION 05/31/20 [facility] PATIENT EDUCATION, NOT OTHERWISE CLASSIFIED, NON-PHYSICIAN PROVIDER, INDIVIDUAL, PER SESSION 05/27/20 [facility] NONINVASIVE EAR OR PULSE OXIMETRY FOR OXYGEN SATURATION; SINGLE DETERMINATION 05/24/20 [facility] PATIENT EDUCATION, NOT OTHERWISE CLASSIFIED, NON-PHYSICIAN PROVIDER, INDIVIDUAL, PER SESSION 05/24/20 [facility] PATIENT EDUCATION, NOT OTHERWISE CLASSIFIED, NON-PHYSICIAN PROVIDER, INDIVIDUAL, PER SESSION 04/16/20 [facility] PATIENT EDUCATION, NOT OTHERWISE CLASSIFIED, NON-PHYSICIAN PROVIDER, INDIVIDUAL, PER SESSION 04/09/20 [facility] EDUCATIONAL SUPPLIES, SUCH BOOKS, TAPES, AND PAMPHLETS, FOR THE PATIENT'S EDUCATION AT COST TO PHYSICIAN OR OTHER QUALIFIED HEALTH SHIPPING AND RECEIVING MATERIAL HANDLER 04/08/20 [facility] PATIENT EDUCATION, NOT OTHERWISE CLASSIFIED, NON-PHYSICIAN PROVIDER, INDIVIDUAL, PER SESSION 04/02/20 06 [facility] PATIENT EDUCATION, NOT OTHERWISE CLASSIFIED, NON-PHYSICIAN PROVIDER, INDIVIDUAL, PER SESSION 03/30/20 [facility] PATIENT EDUCATION, NOT OTHERWISE CLASSIFIED, NON-PHYSICIAN PROVIDER, INDIVIDUAL, PER SESSION 03/25/20 [facility] APPLICATION OF A MODALITY TO 1 OR MORE AREAS; [place] 03/23/20 [facility] EDUCATIONAL SUPPLIES, SUCH BOOKS, TAPES, AND PAMPHLETS, FOR THE PATIENT'S EDUCATION AT COST TO PHYSICIAN OR OTHER QUALIFIED HEALTH SHIPPING AND RECEIVING MATERIAL HANDLER 03/19/20 [facility] PATIENT EDUCATION, NOT OTHERWISE CLASSIFIED, NON-PHYSICIAN PROVIDER, INDIVIDUAL, PER SESSION 03/19/20 06 [facility] PATIENT EDUCATION, NOT OTHERWISE CLASSIFIED, NON-PHYSICIAN PROVIDER, INDIVIDUAL, PER SESSION 03/15/20 06 [facility] PATIENT EDUCATION, NOT OTHERWISE CLASSIFIED, NON-PHYSICIAN PROVIDER, INDIVIDUAL, PER SESSION 03/12/20 06 [facility] PATIENT EDUCATION, NOT OTHERWISE CLASSIFIED, NON-PHYSICIAN PROVIDER, INDIVIDUAL, PER SESSION 03/04/20 [facility] NONINVASIVE EAR OR PULSE OXIMETRY FOR OXYGEN SATURATION; SINGLE DETERMINATION 02/13/20 06 [facility] PATIENT EDUCATION, NOT OTHERWISE CLASSIFIED, NON-PHYSICIAN PROVIDER, INDIVIDUAL, PER SESSION 02/13/20 [facility] SCREENING TEST OF VISUAL ACUITY, QUANTITATIVE, BILATERAL 01/22/20 [facility] PURE TONE AUDIOMETRY (THRESHOLD); AIR ONLY 01/22/20 [facility] Threshold Audiogram (Pure Tone) Threshold Audiogram (Pure Tone) [id number] 06/13/20 08 SARTHAK ETIENNE [facility] Psychiatric Therapy Individual Approximately 20-30 Minutes Psychiatric Therapy Individual Approximately 20-30 Minutes [id number] 04/06/20 08 CAR[place]INA AGUILERA [facility] Psychiatric Evaluation Comprehensive Examination Psychiatric Evaluation Comprehensive Examination [id number] 04/05/20 08 [place] AGUILERA [facility] Psychiatric Evaluation Comprehensive Examination Psychiatric Evaluation Comprehensive Examination [id number] 08/25/20 07 MARGARITO DANIELS [facility] Training And Self-Care Skills Initial 30 Minutes Training And Self-Care Skills Initial 30 Minutes [id number] 05/10/20 07 RAJIV MEYER start hourly calf stretching x 3-4 weeks. instructions and demonstration on proper foot placement of back foot perpendicular to wall for maximal tension on tight calf tissue. After 3-4 weeks, taper to a few times daily in order to maintain new flexibility. America Sommer Supervised Ordering / Handling / Fitting Patient Devices Supervised Ordering / Handling / Fitting Patient Devices [id number] 05/10/20 07 RAJIV MEYER Rx for rigid custom orthotics w/ spenco top cover. Instructions for gradually wearing in all shoes for 1-2 weeks. Orthotics may cause more discomfort at first which is why pt must gradually wear until their body is acclimated to the devices. Pt needs to contact [facility] and make a foot measurement appointment. Patient will return for these foot measurements in order to achieve a custom orthotic. Patient should receive the custom orthotic approx 2-3 weeks after the foot measurement appt. [id number] expense for any additional pairs; to include lost or stolen orthotics, no exceptions. [employer] History Combined list of available smoking, tobacco, and other social history from Department of Defense and Veterans Affairs facilities. Social History Type Response Date Comment Sour e Tobacco smoking status [facility] NEVER USED 03/22/2023 [facility] This section is an empty social history section. DoD
--- OUTSIDE RECORDS SUMMARY | 2025-03-13 19:07 | XMS_ITS | Clinical Summary ---
Author Organization [facility] [facility] Address [address] [place] [address] Care Team Providers Care Software Support Analyst Name Role Phone Unavailable Primary Care Provider Unavailabl e Allergies No known active allergies Medications No known medications Active Problems No known active problems Social History Tobacco Use Types Packs/Day Years Used Date Smoking Tobacco: Never Smokeless Tobacco: Never Sex and Gender Information Value Date Recorded Sex Assigned at Not on file Legal Sex Male 4:27 PM CDT Gender Identity Not on file Sexual Orientation Not on file Last Filed Vital Signs Vital Sign Reading Time Taken Comments Blood Pressure 99/62 04/28/2021 5:53 PM CDT Pulse 90 04/28/2021 5:53 PM CDT Temperature 37.7 C (99.9 F) 04/28/2021 5:53 PM CDT Respiratory Rate 20 04/28/2021 5:53 PM CDT Oxygen Saturation 96% 04/28/2021 5:53 PM CDT Inhaled Oxygen Concentration - - Weight 65.8 kg (145 lb) 04/28/2021 5:53 PM CDT Height 154.9 cm (5' 1) 04/28/2021 5:53 PM CDT Body Mass Index 27.4 04/28/2021 5:53 PM CDT Plan of Treatment Health Maintenance Due Date Last Done Comments Hepatitis C Virus (HCV) Screening 1987 Human Papillomavirus (HPV) Immunization (1 - Male 3-dose series) 2002 Hepatitis B Immunization (1 of 3 - 19+ 3-dose series) 2006 SARS-COV-2 Immunization ( season) 2024 08/14/2021 Influenza Immunization (#1) 2025 Respiratory Syncytial Virus (RSV) Immunization (Adult) (1 - 1-dose 75+ series) 2062 DTaP/Tdap/Td Immunization Discontinued 09/29/2012 TdaP Immunization Completed 09/29/2012 Meningococcal Immunization (ACWY) Aged Out No longer eligible based on patient's age to complete this topic Pneumococcal Immunization Combined Aged Out No longer eligible based on patient's age to complete this topic Rotavirus Immunization Aged Out No lo nger eligible based on patient's age to complete this topic Insurance [place]ICAID [place]
--- OUTSIDE RECORDS SUMMARY | 2025-03-13 19:07 | XMS_ITS | Clinical Summary ---
Author Organization [facility] Address [address] [place] [address] Care Team Providers Care Web Assistant Name Role Phone No, Physician Primary Care Provider [phone] Ethan Mc MD Unavailable [phone] Allergies Active Allergy Reactions Criticality Noted Date [...] on file Legal Sex Male 5:18 PM OPTOMETRIC ASSISTANT Gender Identity Not on file Sexual Orientation Not on file Obstetrics History Last Filed Vital Signs Vital Sign Reading Time Taken Comments Blood Pressure 116/98 08/11/2023 7:52 AM OPTOMETRIC ASSISTANT Pulse 54 08/11/2023 7:52 AM OPTOMETRIC ASSISTANT Temperature 36.4 C (97.5 F) 08/11/2023 7:52 AM OPTOMETRIC ASSISTANT Respiratory Rate 20 08/11/2023 7:52 AM OPTOMETRIC ASSISTANT Oxygen Saturation 93% 08/11/2023 7:52 AM OPTOMETRIC ASSISTANT Inhaled Oxygen Concentration - - Weight 57.7 kg (127 lb 3.2 oz) 08/09/2023 5:22 P M OPTOMETRIC ASSISTANT Height 154.9 cm (5' 1) 08/08/2023 10:00 PM OPTOMETRIC ASSISTANT Body Mass Index 24.03 08/08/2023 10:00 PM OPTOMETRIC ASSISTANT Plan of Treatment Health Maintenance Due Date Last Done Comments Depression Screening 1987 Hepatitis C Screening 1987 Varicella Vaccines (1 of 2 - 13+ 2-dose series) 02/07/2000 Hepatitis B Screening 2005 Regular Well Visit/Exam 18-64 2005 Covid-19 Vaccine (2023-2 5 season) 2024 09/12/2021, 08/14/2021 Influenza Vaccine (#1) 2025 09/12/2012 DTaP/Tdap/Td Vaccine (4 - Td or Tdap) 08/09/2033 08/09/2023, 11/28/2021, 09/29/2012 HPV Vaccines Aged Out No longer eligi ble based on patient's age to complete this topic Pneumococcal vaccine <65 Aged Out No longer eligible based on patient's age to complete this topic Insurance [facility] PL[facility] Advance Directives For more information, please contact: [phone] * Full Code (Latest Code Status on File) Date Activated Date Inactivated Comments 08/09/2023 11:11 AM 08/11/2023 5:06 PM Care Teams Web Assistant Relationship Specialty Start Date End Date No, Physician PCP - General 08/08/23 Ethan Mc MD [address] [place] [address] [address] Surgeon General Surgery 08/11/23
--- NOTE | 2025-03-13 19:26 | ED_ITS ---
HPI - Extremity Injury (Lower) General Chief Complaint: Extremity Injury, Lower Stated Complaint: L achilles injury Time Seen by Provider: 03/13/25 19:14 History of Present Illness HPI Narrative: 40-year-old otherwise healthy male presenting to the emergency department for left calf pain. 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 His hardware trainer thought he might have injured his Achilles. Patient is ambulatory albeit with a a limp. No history of any Achilles injuries prior, no history of any foot or ankle surgeries. Was otherwise in his normal state of health, no recent illnesses, injuries, antibiotic or anti-inflammatory use. Related Data Allergies Allergy/AdvReac Type Severity Reaction Status Date / Time No Known Allergies Allergy Verified 03/13/25 19:10 Review of Systems Review of Systems: As reviewed above in HPI [facility] Past Medical History Medical History BMI 27.0-27.9,adult BMI 25.0-25.9,adult BMI 29.0-29.9,adult BMI 25.0-25.9,adult Abdominal pain in male Acne vulgaris Acute URI Acute bacterial sinusitis Acute bronchitis due to other specified organisms Acute pain of right shoulder Acute suppurative otitis media of right ear without spontaneous rupture of tympanic membrane Anxiety disorder, unspecified Arthralgia of temporomandibular joint, unspecified side Bilateral hip pain Bipolar disorder, unspecified Body mass index [BMI] 25.0-25.9, adult (12/12/18) Body mass index [BMI] 27.0-27.9, adult (01/04/18) Cellulitis of right upper extremity Chronic midline low back pain with bilateral sciatica Chronic midline thoracic back pain Chronic pain of both knees Daytime somnolence Dietary counseling and surveillance (09/26/15) Dyspepsia Dysuria FH: lupus Frequent urination Sparrow's fracture, right hand, subsequent encounter for fracture with routine healing Infected sebaceous cyst of skin Ingrown toenail Injury of median nerve at wrist and hand level of right arm, initial encounter Unspecified injury of right Achilles tendon, subsequent encounter Insomnia, unspecified Irritable bowel syndrome without diarrhea Crushing injury of left wrist, initial encounter Local infection of the skin and subcutaneous tissue, unspecified Post-traumatic stress disorder, chronic Crushing injury of right forearm, initial encounter Right wrist pain Routine physical examination Screening for diabetes mellitus Screening for lipid disorders Sleep disorder BMI 26.0-26.9,adult Penis disorder Erectile dysfunction Family History Family History Father Diabetes mellitus Hypogonadism in male COVID-19 Mother COPD (chronic obstructive pulmonary disease) Asthma Sibling Lupus Autoimmune deficiency syndrome Diabetes mellitus Thyroid activity decreased Other Family history of allergic disorder Family history of migraine headaches Hypertension Social History Social History Smoking status: Former smoker Second hand tobacco smoke exposure: Yes Alcohol intake: former Substance use: current Substance use type: marijuana Other substance usage details: medical marijuana card Living arrangements: with family Occupation/Education: occupation Additional occupation/education comments: [employer] Gender identity (if verbalized by the patient): Male Exam Narrative: GENERAL: [Well-appearing, well-nourished, and in no acute distress.] HEAD: [Normocephalic, atraumatic.] EYES: [PERRLA and EOMI.] ENT: Nares clear, no rhinorrhea or epistaxis. Mucous membranes moist. NECK: Supple. CHEST: [Clear to auscultation. No respiratory distress.] HEART: [Regular rate and rhythm]. No murmur heard. [Normal peripheral pulses.] ABDOMEN: [Soft, nondistended], [nontender], [No rigidity or guarding] EXTREMITIES: Ankle plantar and dorsiflexion slightly diminished on the left side compared to the right but is able to hold extensor mechanism and press down on my hands and lift up his toes with good strength. Arce's test bilaterally elicits plantar flexion of the ankle bilaterally slightly diminished on the left compared to right. Able to ambulate with an antalgic gait. No calf asymmetry overlying skin changes. Warm extremities. SKIN: Warm, dry, no rash. NEURO: [No focal deficits]. Alert and oriented [x3.] PSYCH: [Normal mood and affect.] Course Vital Signs Vital signs: Vital Signs Temperature 36.7 C 03/13/25 19:07 Pulse Rate 78 03/13/25 19:07 Respiratory Rate 16 03/13/25 19:07 Blood Pressure 127/85 03/13/25 19:07 Pulse Oximetry 99 03/13/25 19:07 Oxygen Delivery Room Air 03/13/25 19:07 Temperature 36.7 C 03/13/25 19:07 Pulse Rate 78 03/13/25 19:07 Respiratory Rate 16 03/13/25 19:07 Blood Pressure 127/85 03/13/25 19:07 Pulse Oximetry 99 03/13/25 19:07 Oxygen Delivery Room Air 03/13/25 19:07 MDM - Extremity Injury (Lower) MDM Narrative Medical decision making narrative: 40-year-old otherwise healthy male presenting to the emergency department for left calf pain. 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 His hardware trainer thought he might have injured his Achilles. Patient is ambulatory albeit with a a limp. No history of any Achilles injuries prior, no history of any foot or ankle surgeries. Was otherwise in his normal state of health, no recent illnesses, injuries, antibiotic or anti-inflammatory use. Ankle plantar and dorsiflexion slightly diminished on the left side compared to the right but is able to hold extensor mechanism at the knee and press down on my hands and lift up his toes with good strength. Arce's test bilaterally elicits plantar flexion of the ankle bilaterally slightly diminished on the left compared to right. Able to ambulate with an antalgic gait. No calf asymmetry overlying skin changes. Warm extremities. Patient is hemodynamically stable with warm well-perfused extremities and clinical exam findings suspicious for partial Achilles tear verses gastrocs/soleus injury/hematoma. Unlikely full-thickness tear given physical exam findings. Normal vital signs. Ultrasound of the left lower extremity was ordered for further delineation he was given Toradol and Tylenol for analgesia and re-evaluated. Ultrasound reveals: 1. Likely very small partial tear/moderate grade strain at the myotendinous junction between the caudal margin of the medial head of the gastrocnemius and the underlying aponeurosis. Achilles tendon appears normal. Patient's pain is improved and re-evaluation in given his normal Achilles with partial gastrocnemius tear/sprain he will be treated with conservative therapies including rest, ice, compression, elevation, anti-inflammatories and sent home with orthopedics referral. Encouraged to obtain a brace for comfort and support and refrain from strenuous physical activities until fully healed. He will follow-up with ortho his primary care provider. Patient safely discharged. Medical Records Attestation: I reviewed the patient's medical records. Imaging Data Attestation: I personally reviewed and interpreted this imaging study as follows: My impression: Impressions Soft Tissue Ultrasound 03/13/25 20:11 IMPRESSION: 1. Likely very small partial tear/moderate grade strain at the myotendinous junction between the caudal margin of the medial head of the gastrocnemius and the underlying aponeurosis. Achilles tendon appears normal. Discharge Plan Discharge Clinical Impression: Gastrocnemius tendon tear, Gastrocnemius strain, left Patient Disposition: Still a Patient Condition: Stable Instructions: Tendon Rupture (ED) Additional Instructions: Your ultrasound shows a small tear versus strain of the gastrocnemius muscle and tendon junction. The Achilles tendon is intact without any injury. Treatment for this is usually very conservative with rest, ice, compression and elevation with anti-inflammatory control. A walking boot can be bought to assist with ambulation but no casting or splinting is needed at this time. Apply ice to the area that hurts up to 20 minutes at a time up to 4 times daily to decrease swelling and take Tylenol and ibuprofen every 8 hours for pain and swelling control. Follow-up with the orthopedic provider and he might benefit from p hysical therapy if conservative therapies are not fully improving the symptoms. Refrain from significant strenuous activity until fully healed and cleared by orthopedic doctor or PCP as the small tear and injury may worsen. Patient Language: Maori Prescriptions: New acetaminophen [Tylenol Extra Strength] 500 mg tablet 1,000 mg PO TID PRN (Reason: pain) Qty: 30 0RF ibuprofen 600 mg tablet 600 mg PO TID PRN (Reason: pain) Qty: 20 0RF No Action chlorhexidine gluconate [Peridex] 0.12 % mouthwash 15 ml mucous membrane BID Qty: 473 0RF cephalexin 500 mg capsule 500 mg PO Q8H Qty: 21 0RF Follow-up/Referrals: Ariel Schwartz MD [Physician] - 1 Week (Gastrocnemius tear/sprain) PHYSICIAN,MUSHROOM PACKER [Primary Care Provider] - Sergio Hook MD [Physician] - 1 Week (Gastrocnemius tear/sprain) Time of Disposition: 20:31
[2025-03-13] MEDS: KETOROLAC 10 MG TABLET PO (19:31)
[2025-03-13] MEDS: ACETAMINOPHEN 500 MG TABLET 1000 MG PO (19:31)
--- OUTSIDE RECORDS SUMMARY | 2025-03-13 19:31 | XMS_ITS | Referral Summary ---
Author Organization [facility] Address [facility] [place] [address] Care Team Providers Care Balcony Worker Name Role Phone No, Physician Primary Care Provider [phone] Ethan Mc MD Unavailable [phone] Allergies Active Allergy Reactions Criticality Noted Date [...] on file Legal Sex Male 5:18 PM INFO ANALYST Gender Identity Not on file Sexual Orientation Not on file Last Filed Vital Signs Vital Sign Reading Time Taken Comments Blood Pressure 116/98 08/11/2023 7:52 AM INFO ANALYST Pulse 54 08/11/2023 7:52 AM INFO ANALYST Temperature 36.4 C (97.5 F) 08/11/2023 7:52 AM INFO ANALYST Respiratory Rate 20 08/11/2023 7:52 AM INFO ANALYST Oxygen Saturation 93% 08/11/2023 7:52 AM INFO ANALYST Inhaled Oxygen Concentration - - Weight 57.7 kg (127 lb 3.2 oz) 08/09/2023 5:22 P M INFO ANALYST Height 154.9 cm (5' 1) 08/08/2023 10:00 PM INFO ANALYST Body Mass Index 24.03 08/08/2023 10:00 PM INFO ANALYST Plan of Treatment Not on file Insurance [facility] PL[facility] Member Subscriber Plan / Payer (Ef fective 2021-Present) Name:Ponce Dai Lizbet Relation to Subscriber:Self Name:Ponce Dai Payer ID:[id number] (NAIC) Type:MEDICAID RISK OTHER [address] [facility] Advance Directives For more information, please contact: [phone] * Full Code (Latest Code Status on File) Date Activated Date Inactivated Comments 08/09/2023 11:11 AM 08/11/2023 5:06 PM Care Teams Balcony Worker Relationship Specialty Start Date End Date No, Physician PCP - General 08/08/23 Ethan Mc MD [address] [place] [address] [address] FUNK [address] [place] [id number] Surgeon General Surgery 08/11/23
--- OUTSIDE RECORDS SUMMARY | 2025-03-13 19:31 | XMS_ITS | Clinical Summary ---
Author Organization [facility] Address [address] [place] [address] Care Team Providers Care Civil Engineering Specialist Name Role Phone Jayant Mullins MD Primary Care Provider [phone] Alessandra Saavedra APRN-WIND COMMISSIONING TECHNICIAN Unavailable [phone] Source Comments [facility],non-owned Affiliates and Associated Physician Practices is amultiple site organization consisting of ambulatory clinics and hospital sitesin [place], [place], [place] and [place]. This disclosure is being madepursuant to the Care Everywhere program and may not contain all information available regarding this patient. 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
--- OUTSIDE RECORDS SUMMARY | 2025-03-13 19:31 | XMS_ITS | Clinical Summary ---
Author Organization [facility] [facility] Address [address] [place] [address] Care Team Providers Care Healthcare Economics Consultant Name Role Phone Unavailable Primary Care Provider [...]
--- OUTSIDE RECORDS SUMMARY | 2025-03-13 19:31 | XMS_ITS | Clinical Summary ---
Author Organization [facility] Address [address] [place] [address] Care Team Providers Care Supervisor Pairing And Inspecting Name Role Phone No, Physician Primary Care Provider [phone] Ethan Mc MD Unavailable [phone] Allergies Active Allergy Reactions Criticality Noted Date [...] on file Legal Sex Male 5:18 PM PANTRY COOK Gender Identity Not on file Sexual Orientation Not on file Obstetrics History Last Filed Vital Signs Vital Sign Reading Time Taken Comments Blood Pressure 116/98 08/11/2023 7:52 AM PANTRY COOK Pulse 54 08/11/2023 7:52 AM PANTRY COOK Temperature 36.4 C (97.5 F) 08/11/2023 7:52 AM PANTRY COOK Respiratory Rate 20 08/11/2023 7:52 AM PANTRY COOK Oxygen Saturation 93% 08/11/2023 7:52 AM PANTRY COOK Inhaled Oxygen Concentration - - Weight 57.7 kg (127 lb 3.2 oz) 08/09/2023 5:22 P M PANTRY COOK Height 154.9 cm (5' 1) 08/08/2023 10:00 PM PANTRY COOK Body Mass Index 24.03 08/08/2023 10:00 PM PANTRY COOK Plan of Treatment Health Maintenance Due Date [...] patient's age to complete this topic Insurance [facility] PL[facility] Advance Directives For more information, please contact: [phone] * Full Code (Latest Code Status on File) Date Activated Date Inactivated Comments 08/09/2023 11:11 AM 08/11/2023 5:06 PM Care Teams Supervisor Pairing And Inspecting Relationship Specialty Start Date End Date No, Physician PCP - General 08/08/23 Ethan Mc MD [address] [place] [address] [address] Surgeon General Surgery 08/11/23
--- OUTSIDE RECORDS SUMMARY | 2025-03-13 19:31 | XMS_ITS | Clinical Summary ---
Author Organization [facility] Address [address] [place] [address] Phone Care Team Providers Care Snowboarding Instructor Name Role Phone Unavailable Primary Care Provider Unavailabl e Social History Tobacco Use Types Packs/Day Years Used Date Smoking Tobacco: Never Assessed Sex and Gender Information Value Date Recorded Sex Assigned at Not on file Legal Sex Male 11:43 AM SERVICE DESK TECHNICIAN Gender Identity Not on file Sexual Orientation Not on file Plan of Treatment Health Maintenance Due Date Last Done Comments DTAP/TDAP/TD VACCINES (1 - Tdap) 2006 HEPATITIS B VACCINES (1 of 3 - 19+ 3-dose series) 2006 INFLUENZA VACCINE (#1) 2025 HPV VACCINES Aged Out No longer eligi ble based on patient's age to complete this topic Insurance [facility] [place] [place] [id number] WORKERS COMP
--- OUTSIDE RECORDS SUMMARY | 2025-03-13 19:31 | XMS_ITS | Continuity of Care Document ---
Author Name [facility] Organization [facility] Care Team Providers Care Reconsignment Clerk Name Role Phone [facility] Unavailable Unavailable Problems Combined list of problems from Department of Defense and Veterans Affairs facilities. It does not include entries that were removed or entered in error. 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 It does not include entries that were removed or entered in error. Substance Category Reaction Severity Reaction type Status Date Reported Comments Source No Known Allergies Drug allergy (disorder) active 08/26/2007 [facility] Immunizations Combined list of available immunizations from the Department of Defense and Veterans Affairs facilities. Immunization Series Date Given Administered By Site Reaction Lot Number CVX Code Drug Systems Eng Status Comments Source anthrax vaccine 4 2007 [id number] [facility] [employer] [place] ([facility]) [facility] ed anthrax vaccine [facility] influenza virus vaccine, live, attenuated, for intranasal use 0 2006 [id number] [employer] (MED) complet ed influenza virus vaccine, live, attenuate d, for intranasa l use DoD anthrax vaccine 3 2006 [id number] [employer] [place] ([facility]) complet ed anthrax vaccine DoD anthrax vaccine 2 2006 [id number] [employer] [place] ([facility]) complet ed anthrax vaccine DoD anthrax vaccine 1 2006 [id number] [employer] [place] ([facility]) complet ed anthrax vaccine DoD influenza [...] its performance characteris tics confirmed by the [facility] laboratory thru method comparison with reference laboratory and medication chart review. The laboratory is regulated under CLIA as qualified to perform high-comple xity testing. This test is used for clinical purposes in conjunction with other laboratory tests. Ordering Provider: TAMIE JUDGE Report Released Date/Time: Apr 07, 2023 03:26 PM Reporting Lab: [facility] [address] [address] Performing Lab: [facility] [address] [facility] [address] [address] [facility] METHADON E PANEL (STL) AMPHETAMIN E [PRESENCE] IN URINE BY SCREEN METHOD Negative ng/mL 04/07 Specimen Type: URINE Comment: The cut-off value for this test was laboratory developed and its performance characteris tics confirmed by the [facility] laboratory thru method comparison with reference laboratory and medication chart review. The laboratory is regulated under CLIA as qualified to perform high-comple xity testing. This test is used for clinical purposes in conjunction with other laboratory tests. Ordering Provider: TAMIE JUDGE Report Released Date/Time: Apr 07, 2023 03:26 PM Reporting Lab: [place] [address] [place] [place] [phone] Performing Lab: [place] [phone] [facility] METHADON E PANEL (STL) BENZOYLECG ONINE [PRESENCE] IN URINE Negative ng/mL 04/07 Specimen Type: URINE Comment: The cut-off value for this test was laboratory developed and its performance characteris tics confirmed by the [facility] laboratory thru method comparison with reference laboratory and medication chart review. The laboratory is regulated under CLIA as qualified to perform high-comple xity testing. This test is used for clinical purposes in conjunction with other laboratory tests. Ordering Provider: TAMIE JUDGE Report Released Date/Time: Apr 07, 2023 03:26 PM Reporting Lab: [place] [phone] Performing Lab: [address] [address] [facility] METHADON E PANEL (STL) BENZODIAZE PINES [PRESENCE] IN URINE BY SCREEN METHOD Negative ng/mL 04/07 Specimen Type: URINE Comment: The cut-off value for this test was laboratory developed and its performance characteris tics confirmed by the [facility] laboratory thru method comparison with reference laboratory and medication chart review. The laboratory is regulated under CLIA as qualified to perform high-comple xity testing. This test is used for clinical purposes in conjunction with other laboratory tests. Ordering Provider: TAMIE JUDGE Report Released Date/Time: Apr 07, 2023 03:26 PM Reporting Lab: [facility] [address] [facility] [address] [address] Performing Lab: [facility] [address] [address] [facility] METHADON E PANEL (STL) CANNABINOI DS [PRESENCE] IN URINE BY SCREEN METHOD Negative ng/mL 04/07 Specimen Type: URINE Comment: The cut-off value for this test was laboratory developed and its performance characteris tics confirmed by the [facility] laboratory thru method comparison with reference laboratory and medication chart review. The laboratory is regulated under CLIA as qualified to perform high-comple xity testing. This test is used for clinical purposes in conjunction with other laboratory tests. Ordering Provider: TAMIE JUDGE Report Released Date/Time: Apr 07, 2023 03:26 PM Reporting Lab: [place] [address] [facility] [address] Performing Lab: [place] [address] [facility] [address] [facility] METHADON E PANEL (STL) METHADONE [PRESENCE] IN URINE Negative ng/mL 04/07 Specimen Type: URINE Comment: The cut-off value for this test was laboratory developed and its performance characteris tics confirmed by the [facility] laboratory thru method comparison with reference laboratory and medication chart review. The laboratory is regulated under CLIA as qualified to perform high-comple xity testing. This test is used for clinical purposes in conjunction with other laboratory tests. Ordering Provider: TAMIE JUDGE Report Released Date/Time: Apr 07, 2023 03:26 PM Reporting Lab: [place] [id number] [facility] [address] Performing Lab: [facility] [address] [facility] [address] [address] [facility] METHADON E PANEL (STL) OPIATES [PRESENCE] IN URINE BY SCREEN METHOD Negative ng/mL 04/07 Specimen Type: URINE Comment: The cut-off value for this test was laboratory developed and its performance characteris tics confirmed by the [facility] laboratory thru method comparison with reference laboratory and medication chart review. The laboratory is regulated under CLIA as qualified to perform high-comple xity testing. This test is used for clinical purposes in conjunction with other laboratory tests. Ordering Provider: TAMIE JUDGE Report Released Date/Time: Apr 07, 2023 03:26 PM Reporting Lab: [facility] [address] [address] Performing Lab: [facility] [address] [facility] [address] [facility] METHADON E PANEL (STL) CREATININE [MASS/VOLU ME] IN URINE 67.0 mg/dL 63 - 166 04/07 Specimen Type: URINE Comment: The cut-off value for this test was laboratory developed and its performance characteris tics confirmed by the [facility] laboratory thru method comparison with reference laboratory and medication chart review. The laboratory is regulated under CLIA as qualified to perform high-comple xity testing. This test is used for clinical purposes in conjunction with other laboratory tests. Ordering Provider: TAMIE JUDGE Report Released Date/Time: Apr 07, 2023 03:26 PM Reporting Lab: [facility] [address] [address] Performing Lab: [place] [address] [facility] [address] [facility] METHADON E PANEL (STL) OXYCODONE CUTOFF [MASS/VOLU ME] IN URINE FOR SCREEN METHOD Negative ng/mL 04/07 Specimen Type: URINE Comment: The cut-off value for this test was laboratory developed and its performance characteris tics confirmed by the [facility] laboratory thru method comparison with reference laboratory and medication chart review. The laboratory is regulated under CLIA as qualified to perform high-comple xity testing. This test is used for clinical purposes in conjunction with other laboratory tests. Ordering Provider: TAMIE JUDGE Report Released Date/Time: Apr 07, 2023 03:26 PM Reporting Lab: [facility] [address] [facility] [address] [address] Performing Lab: [address] [address] [facility] METHADON E PANEL (STL) BUPRENORPH INE [PRESENCE] IN URINE Negative 04/07 Specimen Type: URINE Comment: The cut-off value for this test was laboratory developed and its performance characteris tics confirmed by the [facility] laboratory thru method comparison with reference laboratory and medication chart review. The laboratory is regulated under CLIA as qualified to perform high-comple xity testing. This test is used for clinical purposes in conjunction with other laboratory tests. Ordering Provider: TAMIE JUDGE Report Released Date/Time: Apr 07, 2023 03:26 PM Reporting Lab: [address] [address] Performing Lab: [address] [address] [facility] METHADON E PANEL (STL) FENTANYL [PRESENCE] IN URINE Negative ng/mL 04/07 Specimen Type: URINE Comment: The cut-off value for this test was laboratory developed and its performance characteris tics confirmed by the [facility] laboratory thru method comparison with reference laboratory and medication chart review. The laboratory is regulated under CLIA as qualified to perform high-comple xity testing. This test is used for clinical purposes in conjunction with other laboratory tests. Ordering Provider: TAMIE JUDGE Report Released Date/Time: Apr 07, 2023 03:26 PM Reporting Lab: [place] [address] [facility] [address] [address] Performing Lab: [address] [address] [facility] METHADON E PANEL (STL) ETHANOL [MASS/VOLU ME] IN URINE Negative mg/dL 0 - 20 03/31 Specimen Type: URINE Comment: The cut-off value for this test was laboratory developed and its performance characteris tics confirmed by the [facility] laboratory thru method comparison with reference laboratory and medication chart review. The laboratory is regulated under CLIA as qualified to perform high-comple xity testing. This test is used for clinical purposes in conjunction with other laboratory tests. Ordering Provider: TAMIE JUDGE Report Released Date/Time: Mar 31, 2023 09:12 AM Reporting Lab: [facility] [address] [facility] [address] Performing Lab: [facility] [address] [facility] [address] [address] [facility] METHADON E PANEL (STL) AMPHETAMIN E [PRESENCE] IN URINE BY SCREEN METHOD Negative ng/mL 03/31 Specimen Type: URINE Comment: The cut-off value for this test was laboratory developed and its performance characteris tics confirmed by the [facility] laboratory thru method comparison with reference laboratory and medication chart review. The laboratory is regulated under CLIA as qualified to perform high-comple xity testing. This test is used for clinical purposes in conjunction with other laboratory tests. Ordering Provider: TAMIE JUDGE Report Released Date/Time: Mar 31, 2023 09:12 AM Reporting Lab: [address] [address] Performing Lab: [address] [address] [facility] METHADON E PANEL (STL) BENZOYLECG ONINE [PRESENCE] IN URINE Negative ng/mL 03/31 Specimen Type: URINE Comment: The cut-off value for this test was laboratory developed and its performance characteris tics confirmed by the [facility] laboratory thru method comparison with reference laboratory and medication chart review. The laboratory is regulated under CLIA as qualified to perform high-comple xity testing. This test is used for clinical purposes in conjunction with other laboratory tests. Ordering Provider: TAMIE JUDGE Report Released Date/Time: Mar 31, 2023 09:12 AM Reporting Lab: [place] [address] [facility] [address] [address] Performing Lab: [address] [place] [address] [facility] METHADON E PANEL (STL) BENZODIAZE PINES [PRESENCE] IN URINE BY SCREEN METHOD Negative ng/mL 03/31 Specimen Type: URINE Comment: The cut-off value for this test was laboratory developed and its performance characteris tics confirmed by the [facility] laboratory thru method comparison with reference laboratory and medication chart review. The laboratory is regulated under CLIA as qualified to perform high-comple xity testing. This test is used for clinical purposes in conjunction with other laboratory tests. Ordering Provider: TAMIE JUDGE Report Released Date/Time: Mar 31, 2023 09:12 AM Reporting Lab: [place] [phone] Performing Lab: [phone] [place] [address] METHADON E PANEL (STL) CANNABINOI DS [PRESENCE] IN URINE BY SCREEN METHOD 79-POSng /mL 03/31 Specimen Type: URINE Comment: The cut-off value for this test was laboratory developed and its performance characteris tics confirmed by the [facility] laboratory thru method comparison with reference laboratory and medication chart review. The laboratory is regulated under CLIA as qualified to perform high-comple xity testing. This test is used for clinical purposes in conjunction with other laboratory tests. Ordering Provider: TAMIE JUDGE Report Released Date/Time: Mar 31, 2023 09:12 AM Reporting Lab: [address] [address] Performing Lab: [address] [phone] [place] [address] METHADON E PANEL (STL) METHADONE [PRESENCE] IN URINE Negative ng/mL 03/31 Specimen Type: URINE Comment: The cut-off value for this test was laboratory developed and its performance characteris tics confirmed by the [facility] laboratory thru method comparison with reference laboratory and medication chart review. The laboratory is regulated under CLIA as qualified to perform high-comple xity testing. This test is used for clinical purposes in conjunction with other laboratory tests. Ordering Provider: TAMIE JUDGE Report Released Date/Time: Mar 31, 2023 09:12 AM Reporting Lab: [facility] [address] [facility] [address] Performing Lab: [facility] [address] [facility] [address] [facility] METHADON E PANEL (STL) OPIATES [PRESENCE] IN URINE BY SCREEN METHOD Negative ng/mL 03/31 Specimen Type: URINE Comment: The cut-off value for this test was laboratory developed and its performance characteris tics confirmed by the [facility] laboratory thru method comparison with reference laboratory and medication chart review. The laboratory is regulated under CLIA as qualified to perform high-comple xity testing. This test is used for clinical purposes in conjunction with other laboratory tests. Ordering Provider: TAMIE JUDGE Report Released Date/Time: Mar 31, 2023 09:12 AM Reporting Lab: [place] [address] [facility] [address] Performing Lab: [address] [address] [facility] METHADON E PANEL (STL) CREATININE [MASS/VOLU ME] IN URINE 106.2 mg/dL 63 - 166 03/31 Specimen Type: URINE Comment: The cut-off value for this test was laboratory developed and its performance characteris tics confirmed by the [facility] laboratory thru method comparison with reference laboratory and medication chart review. The laboratory is regulated under CLIA as qualified to perform high-comple xity testing. This test is used for clinical purposes in conjunction with other laboratory tests. Ordering Provider: TAMIE JUDGE Report Released Date/Time: Mar 31, 2023 09:12 AM Reporting Lab: [address] [address] Performing Lab: [address] [address] [facility] METHADON E PANEL (STL) OXYCODONE CUTOFF [MASS/VOLU ME] IN URINE FOR SCREEN METHOD Negative ng/mL 03/31 Specimen Type: URINE Comment: The cut-off value for this test was laboratory developed and its performance characteris tics confirmed by the [facility] laboratory thru method comparison with reference laboratory and medication chart review. The laboratory is regulated under CLIA as qualified to perform high-comple xity testing. This test is used for clinical purposes in conjunction with other laboratory tests. Ordering Provider: TAMIE JUDGE Report Released Date/Time: Mar 31, 2023 09:12 AM Reporting Lab: [place] [address] [facility] [address] Performing Lab: [address] [address] [facility] METHADON E PANEL (STL) BUPRENORPH INE [PRESENCE] IN URINE Negative 03/31 Specimen Type: URINE Comment: The cut-off value for this test was laboratory developed and its performance characteris tics confirmed by the [facility] laboratory thru method comparison with reference laboratory and medication chart review. The laboratory is regulated under CLIA as qualified to perform high-comple xity testing. This test is used for clinical purposes in conjunction with other laboratory tests. Ordering Provider: TAMIE JUDGE Report Released Date/Time: Mar 31, 2023 09:12 AM Reporting Lab: [place] [address] [facility] [address] Performing Lab: [place] [address] [facility] [address] [address] [facility] METHADON E PANEL (STL) FENTANYL [PRESENCE] IN URINE Negative ng/mL 03/31 Specimen Type: URINE Comment: The cut-off value for this test was laboratory developed and its performance characteris tics confirmed by the [facility] laboratory thru method comparison with reference laboratory and medication chart review. The laboratory is regulated under CLIA as qualified to perform high-comple xity testing. This test is used for clinical purposes in conjunction with other laboratory tests. Ordering Provider: TAMIE JUDGE Report Released Date/Time: Mar 31, 2023 09:12 AM Reporting Lab: [address] [address] Performing Lab: [address] [address] [facility] METHADON E PANEL (STL) ETHANOL [MASS/VOLU ME] IN URINE Negative mg/dL 0 - 20 03/24 Specimen Type: URINE Comment: The cut-off value for this test was laboratory developed and its performance characteris tics confirmed by the [facility] laboratory thru method comparison with reference laboratory and medication chart review. The laboratory is regulated under CLIA as qualified to perform high-comple xity testing. This test is used for clinical purposes in conjunction with other laboratory tests. Ordering Provider: TAMIE JUDGE Report Released Date/Time: Mar 24, 2023 09:36 AM Reporting Lab: [address] [address] Performing Lab: [address] [address] [facility] METHADON E PANEL (STL) AMPHETAMIN E [PRESENCE] IN URINE BY SCREEN METHOD Negative ng/mL 03/24 Specimen Type: URINE Comment: The cut-off value for this test was laboratory developed and its performance characteris tics confirmed by the [facility] laboratory thru method comparison with reference laboratory and medication chart review. The laboratory is regulated under CLIA as qualified to perform high-comple xity testing. This test is used for clinical purposes in conjunction with other laboratory tests. Ordering Provider: TAMIE JUDGE Report Released Date/Time: Mar 24, 2023 09:36 AM Reporting Lab: [address] [address] Performing Lab: [address] [address] [facility] METHADON E PANEL (STL) BENZOYLECG ONINE [PRESENCE] IN URINE Negative ng/mL 03/24 Specimen Type: URINE Comment: The cut-off value for this test was laboratory developed and its performance characteris tics confirmed by the [facility] laboratory thru method comparison with reference laboratory and medication chart review. The laboratory is regulated under CLIA as qualified to perform high-comple xity testing. This test is used for clinical purposes in conjunction with other laboratory tests. Ordering Provider: TAMIE JUDGE Report Released Date/Time: Mar 24, 2023 09:36 AM Reporting Lab: [facility] [address] [address] Performing Lab: [facility] [address] [facility] [address] [facility] METHADON E PANEL (STL) BENZODIAZE PINES [PRESENCE] IN URINE BY SCREEN METHOD Negative ng/mL 03/24 Specimen Type: URINE Comment: The cut-off value for this test was laboratory developed and its performance characteris tics confirmed by the [facility] laboratory thru method comparison with reference laboratory and medication chart review. The laboratory is regulated under CLIA as qualified to perform high-comple xity testing. This test is used for clinical purposes in conjunction with other laboratory tests. Ordering Provider: TAMIE JUDGE Report Released Date/Time: Mar 24, 2023 09:36 AM Reporting Lab: [facility] [address] [address] Performing Lab: [place] [address] [facility] [address] [address] [facility] METHADON E PANEL (STL) CANNABINOI DS [PRESENCE] IN URINE BY SCREEN METHOD 87-POSng /mL 03/24 Specimen Type: URINE Comment: The cut-off value for this test was laboratory developed and its performance characteris tics confirmed by the [facility] laboratory thru method comparison with reference laboratory and medication chart review. The laboratory is regulated under CLIA as qualified to perform high-comple xity testing. This test is used for clinical purposes in conjunction with other laboratory tests. Ordering Provider: TAMIE JUDGE Report Released Date/Time: Mar 24, 2023 09:36 AM Reporting Lab: [facility] [address] [address] Performing Lab: [address] [address] [facility] METHADON E PANEL (STL) METHADONE [PRESENCE] IN URINE Negative ng/mL 03/24 Specimen Type: URINE Comment: The cut-off value for this test was laboratory developed and its performance characteris tics confirmed by the [facility] laboratory thru method comparison with reference laboratory and medication chart review. The laboratory is regulated under CLIA as qualified to perform high-comple xity testing. This test is used for clinical purposes in conjunction with other laboratory tests. Ordering Provider: TAMIE JUDGE Report Released Date/Time: Mar 24, 2023 09:36 AM Reporting Lab: [address] [address] Performing Lab: [place] [address] [facility] [address] [facility] METHADON E PANEL (STL) OPIATES [PRESENCE] IN URINE BY SCREEN METHOD Negative ng/mL 03/24 Specimen Type: URINE Comment: The cut-off value for this test was laboratory developed and its performance characteris tics confirmed by the [facility] laboratory thru method comparison with reference laboratory and medication chart review. The laboratory is regulated under CLIA as qualified to perform high-comple xity testing. This test is used for clinical purposes in conjunction with other laboratory tests. Ordering Provider: TAMIE JUDGE Report Released Date/Time: Mar 24, 2023 09:36 AM Reporting Lab: [place] [address] [facility] [address] Performing Lab: [address] [address] [facility] METHADON E PANEL (STL) CREATININE [MASS/VOLU ME] IN URINE 140.8 mg/dL 63 - 166 03/24 Specimen Type: URINE Comment: The cut-off value for this test was laboratory developed and its performance characteris tics confirmed by the [facility] laboratory thru method comparison with reference laboratory and medication chart review. The laboratory is regulated under CLIA as qualified to perform high-comple xity testing. This test is used for clinical purposes in conjunction with other laboratory tests. Ordering Provider: TAMIE JUDGE Report Released Date/Time: Mar 24, 2023 09:36 AM Reporting Lab: [facility] [address] [facility] [address] Performing Lab: [facility] [address] [facility] [address] [facility] METHADON E PANEL (STL) OXYCODONE CUTOFF [MASS/VOLU ME] IN URINE FOR SCREEN METHOD Negative ng/mL 03/24 Specimen Type: URINE Comment: The cut-off value for this test was laboratory developed and its performance characteris tics confirmed by the [facility] laboratory thru method comparison with reference laboratory and medication chart review. The laboratory is regulated under CLIA as qualified to perform high-comple xity testing. This test is used for clinical purposes in conjunction with other laboratory tests. Ordering Provider: TAMIE JUDGE Report Released Date/Time: Mar 24, 2023 09:36 AM Reporting Lab: [address] [address] Performing Lab: [address] [address] [facility] METHADON E PANEL (STL) BUPRENORPH INE [PRESENCE] IN URINE Negative 03/24 Specimen Type: URINE Comment: The cut-off value for this test was laboratory developed and its performance characteris tics confirmed by the [facility] laboratory thru method comparison with reference laboratory and medication chart review. The laboratory is regulated under CLIA as qualified to perform high-comple xity testing. This test is used for clinical purposes in conjunction with other laboratory tests. Ordering Provider: TAMIE JUDGE Report Released Date/Time: Mar 24, 2023 09:36 AM Reporting Lab: [place] [address] [facility] [address] Performing Lab: [address] [place] [address] [facility] METHADON E PANEL (STL) FENTANYL [PRESENCE] IN URINE Negative ng/mL 03/24 Specimen Type: URINE Comment: The cut-off value for this test was laboratory developed and its performance characteris tics confirmed by the [facility] laboratory thru method comparison with reference laboratory and medication chart review. The laboratory is regulated under CLIA as qualified to perform high-comple xity testing. This test is used for clinical purposes in conjunction with other laboratory tests. Ordering Provider: TAMIE JUDGE Report Released Date/Time: Mar 24, 2023 09:36 AM Reporting Lab: [address] [address] Performing Lab: [address] [phone] [place] [address] HEP C Ab HCV Ab (STL) HEPATITIS C VIRUS AB [PRESENCE] IN SERUM Nonreact alia 03/23 Specimen Type: SERUM No comment entered. Ordering Provider: TAMIE JUDGE Report Released Date/Time: Mar 22, 2023 09:52 AM Reporting Lab: [address] [address] Performing Lab: [address] [address] [facility] METHADON E PANEL (STL) ETHANOL [MASS/VOLU ME] IN URINE Negative mg/dL 0 - 20 03/22 Specimen Type: URINE Comment: The cut-off value for this test was laboratory developed and its performance characteris tics confirmed by the [facility] laboratory thru method comparison with reference laboratory and medication chart review. The laboratory is regulated under CLIA as qualified to perform high-comple xity testing. This test is used for clinical purposes in conjunction with other laboratory tests. Ordering Provider: TAMIE JUDGE Report Released Date/Time: Mar 22, 2023 10:49 AM Reporting Lab: [address] [address] Performing Lab: [place] [address] [facility] [address] [facility] METHADON E PANEL (STL) AMPHETAMIN E [PRESENCE] IN URINE BY SCREEN METHOD Negative ng/mL 03/22 Specimen Type: URINE Comment: The cut-off value for this test was laboratory developed and its performance characteris tics confirmed by the [facility] laboratory thru method comparison with reference laboratory and medication chart review. The laboratory is regulated under CLIA as qualified to perform high-comple xity testing. This test is used for clinical purposes in conjunction with other laboratory tests. Ordering Provider: TAMIE JUDGE Report Released Date/Time: Mar 22, 2023 10:49 AM Reporting Lab: [address] [address] Performing Lab: [address] [address] [facility] METHADON E PANEL (STL) BENZOYLECG ONINE [PRESENCE] IN URINE Negative ng/mL 03/22 Specimen Type: URINE Comment: The cut-off value for this test was laboratory developed and its performance characteris tics confirmed by the [facility] laboratory thru method comparison with reference laboratory and medication chart review. The laboratory is regulated under CLIA as qualified to perform high-comple xity testing. This test is used for clinical purposes in conjunction with other laboratory tests. Ordering Provider: TAMIE JUDGE Report Released Date/Time: Mar 22, 2023 10:49 AM Reporting Lab: [address] [address] Performing Lab: [place] [address] [facility] [address] [facility] METHADON E PANEL (STL) BENZODIAZE PINES [PRESENCE] IN URINE BY SCREEN METHOD Negative ng/mL 03/22 Specimen Type: URINE Comment: The cut-off value for this test was laboratory developed and its performance characteris tics confirmed by the [facility] laboratory thru method comparison with reference laboratory and medication chart review. The laboratory is regulated under CLIA as qualified to perform high-comple xity testing. This test is used for clinical purposes in conjunction with other laboratory tests. Ordering Provider: TAMIE JUDGE Report Released Date/Time: Mar 22, 2023 10:49 AM Reporting Lab: [facility] [address] [facility] [address] Performing Lab: [facility] [address] [facility] [address] [facility] METHADON E PANEL (STL) CANNABINOI DS [PRESENCE] IN URINE BY SCREEN METHOD 97-POSng /mL 03/22 Specimen Type: URINE Comment: The cut-off value for this test was laboratory developed and its performance characteris tics confirmed by the [facility] laboratory thru method comparison with reference laboratory and medication chart review. The laboratory is regulated under CLIA as qualified to perform high-comple xity testing. This test is used for clinical purposes in conjunction with other laboratory tests. Ordering Provider: TAMIE JUDGE Report Released Date/Time: Mar 22, 2023 10:49 AM Reporting Lab: [facility] [address] [facility] [address] Performing Lab: [address] [address] [facility] METHADON E PANEL (STL) METHADONE [PRESENCE] IN URINE Negative ng/mL 03/22 Specimen Type: URINE Comment: The cut-off value for this test was laboratory developed and its performance characteris tics confirmed by the [facility] laboratory thru method comparison with reference laboratory and medication chart review. The laboratory is regulated under CLIA as qualified to perform high-comple xity testing. This test is used for clinical purposes in conjunction with other laboratory tests. Ordering Provider: TAMIE JUDGE Report Released Date/Time: Mar 22, 2023 10:49 AM Reporting Lab: [facility] [address] [facility] [address] Performing Lab: [facility] [address] [facility] [address] [facility] METHADON E PANEL (STL) OPIATES [PRESENCE] IN URINE BY SCREEN METHOD Negative ng/mL 03/22 Specimen Type: URINE Comment: The cut-off value for this test was laboratory developed and its performance characteris tics confirmed by the [facility] laboratory thru method comparison with reference laboratory and medication chart review. The laboratory is regulated under CLIA as qualified to perform high-comple xity testing. This test is used for clinical purposes in conjunction with other laboratory tests. Ordering Provider: TAMIE JUDGE Report Released Date/Time: Mar 22, 2023 10:49 AM Reporting Lab: [address] [address] Performing Lab: [address] [address] [facility] METHADON E PANEL (STL) CREATININE [MASS/VOLU ME] IN URINE 88.6 mg/dL 63 - 166 03/22 Specimen Type: URINE Comment: The cut-off value for this test was laboratory developed and its performance characteris tics confirmed by the [facility] laboratory thru method comparison with reference laboratory and medication chart review. The laboratory is regulated under CLIA as qualified to perform high-comple xity testing. This test is used for clinical purposes in conjunction with other laboratory tests. Ordering Provider: TAMIE JUDGE Report Released Date/Time: Mar 22, 2023 10:49 AM Reporting Lab: [address] [address] Performing Lab: [address] [address] [facility] METHADON E PANEL (STL) OXYCODONE CUTOFF [MASS/VOLU ME] IN URINE FOR SCREEN METHOD Negative ng/mL 03/22 Specimen Type: URINE Comment: The cut-off value for this test was laboratory developed and its performance characteris tics confirmed by the [facility] laboratory thru method comparison with reference laboratory and medication chart review. The laboratory is regulated under CLIA as qualified to perform high-comple xity testing. This test is used for clinical purposes in conjunction with other laboratory tests. Ordering Provider: TAMIE JUDGE Report Released Date/Time: Mar 22, 2023 10:49 AM Reporting Lab: [address] [address] Performing Lab: [address] [address] [facility] METHADON E PANEL (STL) BUPRENORPH INE [PRESENCE] IN URINE Negative 03/22 Specimen Type: URINE Comment: The cut-off value for this test was laboratory developed and its performance characteris tics confirmed by the [facility] laboratory thru method comparison with reference laboratory and medication chart review. The laboratory is regulated under CLIA as qualified to perform high-comple xity testing. This test is used for clinical purposes in conjunction with other laboratory tests. Ordering Provider: TAMIE JUDGE Report Released Date/Time: Mar 22, 2023 10:49 AM Reporting Lab: [address] [address] Performing Lab: [address] [address] [facility] METHADON E PANEL (STL) FENTANYL [PRESENCE] IN URINE Negative ng/mL 03/22 Specimen Type: URINE Comment: The cut-off value for this test was laboratory developed and its performance characteris tics confirmed by the [facility] laboratory thru method comparison with reference laboratory and medication chart review. The laboratory is regulated under CLIA as qualified to perform high-comple xity testing. This test is used for clinical purposes in conjunction with other laboratory tests. Ordering Provider: TAMIE JUDGE Report Released Date/Time: Mar 22, 2023 10:49 AM Reporting Lab: [address] [address] Performing Lab: [address] [address] [facility] COVID-19 SCREENIN G PANEL (STL-PB) SARS-COV-2 (COVID-19) [...] Mar 18, 2023 03:01 PM Reporting Lab: [facility] [address] [facility] [address] Performing Lab: [facility] [address] [facility] [address] [facility] Encounters Combined list of: 1) Encounters from Department of [facility] Affairs facilities going backup to the last 18 months, not all [place] inpatient encounters are included; 2) Encounters from the Department of [facility] facilities going backup to 280 months. Location Location Details Encounter Type Encounter Number Reason For Visit Attending Provider ADM Date DC Date Status Disposition Source [facility] [place] OUTPATIENT [id number] R/O FX LEFT TIB/FIB RAMIRO ESCOBAR 02/26 Immediate Referral [place], [place]([facility]) [facility](Po diatry Clinic [facility]) OUTPATIENT [id number] under pronati on of both ankles. RAJIV MEYER 05/10 Released w/o Limitations [facility]( Podiatr y Clinic [facility] ) [facility](Br ig [facility]) OUTPATIENT [id number] New Lock Up LEENA KOHLI 04/07 Released w/o Limitations [facility]( Brig Clinic) [facility] [place]) OUTPATIENT [id number] SARTHAK ETIENNE 06/13 Released w/o Limitations [facility]( [facility] [place]) [facility] Outpatient Encounter [id number] 09/25 [facility] Procedures Combined list of: 1) Procedures from Department of Veterans Affairs facilities going back up to thelast 18 months, not all [facility] non-surgical procedures are included; 2) All procedures from the Department of Defense facilities. Procedure Procedure Type Code Date Perfomer Comments Sour e PURE TONE AUDIOMETRY (THRESHOLD); AIR ONLY 06/13/[address] [facility] INDIVIDUAL PSYCHOTHERAPY, INSIGHT ORIENTED, BEHAVIOR MODIFYING AND/OR SUPPORTIVE, IN AN OFFICE OR OUTPATIENT FACILITY, APPROXIMATELY 20 TO 30 MINUTES [id number] WITH THE PATIENT 04/06/20 [facility] PSYCHIATRIC DIAGNOSTIC INTERVIEW EXAMINATION 04/05/20 [facility] PSYCHIATRIC DIAGNOSTIC INTERVIEW EXAMINATION 08/25/[address] [facility] SELF-CARE/HOME MANAGMENT TRAIN (EG,ACT OF DAILY LIVING (ADL) &COMPENSAT TRAIN,MEAL PREPARATION,SAFETY PROCS,AND INSTRUCT IN USE OF ASST TECHNOLOGY DEV/ADPT EQUIP) DIR ONE-ON-ONE CONT,EA 15 MINUTES 05/10/[address] [facility] NONINVASIVE EAR OR PULSE OXIMETRY FOR OXYGEN SATURATION; SINGLE DETERMINATION 06/14/20 [facility] PATIENT EDUCATION, NOT OTHERWISE CLASSIFIED, NON-PHYSICIAN PROVIDER, INDIVIDUAL, PER SESSION 06/14/20 [facility] PATIENT EDUCATION, NOT OTHERWISE CLASSIFIED, NON-PHYSICIAN PROVIDER, INDIVIDUAL, PER SESSION 06/04/20 [facility] NONINVASIVE EAR OR PULSE OXIMETRY FOR OXYGEN SATURATION; SINGLE DETERMINATION 05/31/20 [facility] PATIENT EDUCATION, NOT OTHERWISE CLASSIFIED, NON-PHYSICIAN PROVIDER, INDIVIDUAL, PER SESSION 05/27/20 [facility] NONINVASIVE EAR OR PULSE OXIMETRY FOR OXYGEN SATURATION; SINGLE DETERMINATION 05/24/20 [facility] PATIENT EDUCATION, NOT OTHERWISE CLASSIFIED, NON-PHYSICIAN PROVIDER, INDIVIDUAL, PER SESSION 05/24/20 [facility] PATIENT EDUCATION, NOT OTHERWISE CLASSIFIED, NON-PHYSICIAN PROVIDER, INDIVIDUAL, PER SESSION 04/16/20 [facility] PATIENT EDUCATION, NOT OTHERWISE CLASSIFIED, NON-PHYSICIAN PROVIDER, INDIVIDUAL, PER SESSION 04/09/20 [facility] EDUCATIONAL SUPPLIES, SUCH BOOKS, TAPES, AND PAMPHLETS, FOR THE PATIENT'S EDUCATION AT COST TO PHYSICIAN OR OTHER QUALIFIED HEALTH FIRE PREVENTION RESEARCH ENGINEER 04/08/20 [facility] PATIENT EDUCATION, NOT OTHERWISE CLASSIFIED, NON-PHYSICIAN PROVIDER, INDIVIDUAL, PER SESSION 04/02/[address] [facility] PATIENT EDUCATION, NOT OTHERWISE CLASSIFIED, NON-PHYSICIAN PROVIDER, INDIVIDUAL, PER SESSION 03/30/20 [facility] PATIENT EDUCATION, NOT OTHERWISE CLASSIFIED, NON-PHYSICIAN PROVIDER, INDIVIDUAL, PER SESSION 03/25/20 [facility] APPLICATION OF A MODALITY TO 1 OR MORE AREAS; [place] 03/23/20 [facility] EDUCATIONAL SUPPLIES, SUCH BOOKS, TAPES, AND PAMPHLETS, FOR THE PATIENT'S EDUCATION AT COST TO PHYSICIAN OR OTHER QUALIFIED HEALTH FIRE PREVENTION RESEARCH ENGINEER 03/19/20 [facility] PATIENT EDUCATION, NOT OTHERWISE CLASSIFIED, NON-PHYSICIAN PROVIDER, INDIVIDUAL, PER SESSION 03/19/[address] [facility] PATIENT EDUCATION, NOT OTHERWISE CLASSIFIED, NON-PHYSICIAN PROVIDER, INDIVIDUAL, PER SESSION 03/15/[address] [facility] PATIENT EDUCATION, NOT OTHERWISE CLASSIFIED, NON-PHYSICIAN PROVIDER, INDIVIDUAL, PER SESSION 03/12/[address] [facility] PATIENT EDUCATION, NOT OTHERWISE CLASSIFIED, NON-PHYSICIAN PROVIDER, INDIVIDUAL, PER SESSION 03/04/20 [facility] NONINVASIVE EAR OR PULSE OXIMETRY FOR OXYGEN SATURATION; SINGLE DETERMINATION 02/13/[address] [facility] PATIENT EDUCATION, NOT OTHERWISE CLASSIFIED, NON-PHYSICIAN PROVIDER, INDIVIDUAL, PER SESSION 02/13/20 [facility] SCREENING TEST OF VISUAL ACUITY, QUANTITATIVE, BILATERAL 01/22/20 [facility] PURE TONE AUDIOMETRY (THRESHOLD); AIR ONLY 01/22/20 [facility] Threshold Audiogram (Pure Tone) Threshold Audiogram (Pure Tone) [id number] 06/13/[address] [facility] Psychiatric Therapy Individual Approximately 20-30 Minutes Psychiatric Therapy Individual Approximately 20-30 Minutes [id number] 04/06/[address] [facility] Psychiatric Evaluation Comprehensive Examination Psychiatric Evaluation Comprehensive Examination [id number] 04/05/[address] [facility] Psychiatric Evaluation Comprehensive Examination Psychiatric Evaluation Comprehensive Examination [id number] 08/25/[address] [facility] Training And Self-Care Skills Initial 30 Minutes Training And Self-Care Skills Initial 30 Minutes [id number] 05/10/20 07 RAJIV MEYER start hourly calf [...] Ordering / Handling / Fitting Patient Devices [id number] 05/10/20 07 RAJIV MEYER Rx for rigid [...] 2-3 weeks after the foot measurement appt. [id number] expense for any additional pairs; to include lost or stolen orthotics, no exceptions. [employer] Social History Combined list of available smoking, tobacco, and other social history from Department of Defense and Veterans Affairs facilities. Social History Type Response Date Comment Sour e Tobacco smoking status [facility]-TOBACCO NEVER USED 03/22/2023 [facility] This section is an empty social history section. DoD
[2025-03-13 20:43] VITALS: BP 122/91; PULSE 78; RESP 18; TEMP 36.6; O2SAT 100
== END 2025-03-13 20:35 | disposition home or self-care (01) ==
PROVIDERS: Emergency Provider Student in an Organized Health Care Education/Training Program
DX: S86.112A Strain of other muscle(s) and tendon(s) of posterior muscle group at lower leg level, left leg, initial encounter (principal); F41.9 Anxiety disorder, unspecified; G31.9 Degenerative disease of nervous system, unspecified; X50.0XXA Overexertion from strenuous movement or load, initial encounter
CPT/HCPCS: 76882; 99283; 99284; A9270